=== PATIENT | female | born 1950 | race Caucasian/White ===

== ENCOUNTER 2016-06-25 13:51 | Inpatient (IN) | payer OTHER, MEDICARE ==
[~2016-06-25] VITALS: Ht 152.4 cm; Wt 107.1 kg
[2016-06-28] MEDS ORDERED: GABA300C5 PO (10:31)
[2016-06-28] MEDS ORDERED: DULO1CAP2 PO (10:32)
[2016-06-28] MEDS ORDERED: METO25TA3 PO (10:33)
[2016-06-28] MEDS ORDERED: SPIR25TA PO (10:33)
[2016-06-28] MEDS ORDERED: AZEL137S EACH NARE (10:33)
[2016-06-28] MEDS ORDERED: FURO20TA PO (10:34)
[2016-06-28] MEDS ORDERED: LEVO50TA4 PO (10:34)
[2016-06-28] MEDS ORDERED: CETI10 PO (10:34)
[2016-06-28] MEDS ORDERED: LYRI75CA PO (10:35)
[2016-06-28] MEDS ORDERED: LISI40TA PO (10:35)
[2016-06-28] MEDS ORDERED: ATOR40TA16 PO (10:36)
[2016-06-28] MEDS ORDERED: NORT10CA PO (10:36)
[2016-06-28] MEDS ORDERED: OMEP20TA PO (10:37)
[2016-06-28] MEDS ORDERED: CENTTAB PO (10:37)
[2016-06-28] MEDS ORDERED: VITA100064 PO (10:38)
[2016-06-28] MEDS ORDERED: OMEGCAP PO (10:38)
--- NOTE | 2016-07-01 17:36 | MH ---
cc: Allison SARABIA M.D. DATE OF ADMISSION: 07/05/2016 ADMITTING DIAGNOSIS: Osteoarthritic degeneration left knee now being admitted for left total knee arthroplasty. HISTORY OF PRESENT ILLNESS: This pleasant 66-year-old morbidly obese female is being admitted today for a left total knee arthroplasty due to severe painful osteoarthritic degeneration left knee. OTHER PAST HISTORY: 1. She has a history of arthritis 2. Asthma 3. Fibromyalgia 4. Hypertension 5. Low back pain 6. Neck pain 7. Thyroid issues CURRENT MEDICATIONS 1. Gabapentin 2. Duloxetine. 3. Spironolactone. 4. Metoprolol 5. 6. Lasix 7. Cetirizine. 8. Levothyroxine. 9. Lisinopril. 10. Lyrica 11. nortriptyline 12. Atorvastatin 13. Omeprazole 14. Centrum Silver 15. fish oil. 16. Vitamin D. PAST SURGERIES 1. Hysterectomy 2. Appendectomy 3. Left elbow surgery 4. Wrist surgery 5. Right rotator cuff surgery. REVIEW OF SYSTEMS Noncontributory. FAMILY HISTORY Noncontributory. SOCIAL HISTORY: She does not smoke. She drinks socially. ALLERGIES PENICILLIN. PHYSICAL EXAMINATION IN GENERAL: We find a 66-year-old morbidly obese female well-developed, well-nourished oriented x3 complaining of pain in her left knee. VITAL SIGNS: Blood pressure 118/72, pulse 66 and regular, respirations 16, temperature 97.6, pulse oximetry 96% on room air. HEAD, EYES, EARS, NOSE, AND THROAT: Eyes Pupils equal, round, reactive to light and accommodation, extraocular muscles intact. Ears, nose, mouth clear. NECK: Supple LUNGS: Clear HEART: Regular rate. ABDOMEN: Soft. Bowel sounds, nontender. EXTREMITIES: The extremities reveal her left knee to be tender with crepitance on range of motion. NEUROVASCULAR: She is neurovascularly intact to her toes. IMPRESSION Severe painful osteoarthritic degeneration left knee. PLAN Admission for left total knee arthroplasty today. The patient given prescription postoperative pain anticoagulation control in the office plans on going home after stay in the hospital with home health care. She understands to use Hibiclens scrub and Bactroban preoperatively. J. MD CATHLEEN Luz/michael /4:57 PM /5:17 PM
[2016-07-05] MEDS ORDERED: BUPIVACAINE HCL PF 0.5% 30 ML VIAL NERV BLOCK ONE (10:39)
[2016-07-05] MEDS ORDERED: LACTATED RINGER'S 1000 ML IV PRN (10:45)
[2016-07-05] MEDS ORDERED: POVIDONE IODINE 5% (ANTISEPSIS KIT) 4 APPLICATIONS EACH NARE PRN (10:45)
[2016-07-05] MEDS ORDERED: INSULIN HUMAN REGULAR 1,000 UNITS/10 ML VIAL SQ PRN (10:45)
[2016-07-05] MEDS ORDERED: CHLORHEXIDINE GLUCONATE 4% SOLN 120 ML BTL TOPICAL SCH (10:45)
[2016-07-05] MEDS ORDERED: CLINDAMYCIN 900 MG/NS 100 ML IV SCH ×2 (10:45)
[2016-07-05] MEDS ORDERED: SODIUM CHLORID 0.9% 500 ML IV PRN (10:45)
[2016-07-05] MEDS ORDERED: VANCOMYCIN 1000 MG/NS 250 ML (for <70 kg) IV SCH ×2 (10:45)
[2016-07-05] MEDS ORDERED: METOPROLOL TARTRATE 25 MG TAB PO PRN (10:45)
[2016-07-05] MEDS ORDERED: CHLORHEXIDINE GLUCONATE 2 % 1 PACK (2 CLOTHS) TOPICAL PRN (10:45)
[2016-07-05 10:47] VITALS: BP 119/78; PULSE 67; RESP 6; TEMP 98.3; O2SAT 96
[2016-07-05] MEDS ORDERED: CLINDAMYCIN PHOS 900 MG/6 ML VIAL ONE (11:21)
[2016-07-05] MEDS ORDERED: GENTAMICIN SULFATE 80 MG/2 ML VIAL ONE (11:22)
[2016-07-05] MEDS ORDERED: fentaNYL CITRATE 250 MCG/5 ML AMP ONE (11:33)
[2016-07-05] MEDS ORDERED: ACETAMINOPHEN/HYDROcodone 325 MG/7.5 MG TAB PO PRN (12:00)
[2016-07-05] MEDS ORDERED: ONDANSETRON HCL 4 MG/2 ML VIAL IV PUSH ONE (12:00)
[2016-07-05] MEDS ORDERED: SODIUM CHLORIDE 0.9% IV SCH ×2 (12:00→15:00)
[2016-07-05] MEDS ORDERED: TRANEXAMIC ACID INJ 0 MG in SODIUM CHLORIDE 0.9% INJ 100 ML IV SCH (12:00)
[2016-07-05] MEDS ORDERED: PROPOFOL 200 MG/20 ML AMP IV ONE (12:00)
[2016-07-05] MEDS ORDERED: Post-op Orders (for Pharmacy) MISC XX ONE (12:00)
[2016-07-05] MEDS ORDERED: PHENYLEPH/NS 1000 MCG/10 ML SYR IV ONE (12:00)
[2016-07-05] MEDS ORDERED: ONDANSETRON HCL 4 MG/2 ML VIAL IVP PRN (12:00)
[2016-07-05] MEDS ORDERED: diphenhydrAMINE HCL 50 MG/ML VIAL IV PRN (12:00)
[2016-07-05] MEDS ORDERED: ePHEDrine/NS 25 MG/5 ML SYR IV ONE (12:00)
[2016-07-05] MEDS ORDERED: MORPHINE SULFATE 30 MG/30 ML PCA IV SCH (12:00)
[2016-07-05] MEDS ORDERED: NALOXONE HCL 0.4 MG/ML AMP IV PRN (12:00)
[2016-07-05] MEDS ORDERED: TRANEXAMIC ACID IV SCH ×2 (12:00→15:00)
[2016-07-05] MEDS ORDERED: BUPIVACAINE LIPOSO PF 1.3% INJ 20 ML, BUPIVACAINE PF 0.25% INJ 20 ML in SODIUM CHLORIDE... P-ARTICULR SCH (12:00)
[2016-07-05] MEDS ORDERED: SODIUM CHLORIDE 0.9% FLUSH 5 ML FLUSH IVF PRN (12:00)
[2016-07-05] MEDS ORDERED: NEOSTIGMINE METHYLSULFATE 10 MG/10 ML VIAL IV PUSH ONE (12:00)
[2016-07-05] MEDS ORDERED: LACTATED RINGER'S 1000 ML INJ 1,000 ML IV ONE (12:00)
--- NOTE | 2016-07-05 12:06 | HHI.FF ---
Face to Face Verification Diagnosis: (1) Status post total left knee replacement Physical Therapy Gait training Knee: Total knee, Protocol: Left, Full weight bearing Canvas Knee Splint: When in bed & 2 pillows btw thighs Nursing RN: 3 days/week x 2 weeks Nursing: Leia teaching, Dressing changes Dressing Changes: Daily dressing change, 4x4s, Gauze, Paper tape I have seen patient Katie Roberts on 07/05/16. My clinical findings support the need for the requested home health care services because: Limited ability to care for self High risk of falls I certify that my clinical findings support that this patient is homebound because: Unsteady gait/balance Allison Osuna MD July 05, 2016 12:06
[2016-07-05] MEDS ORDERED: MISC-163 (12:08)
[2016-07-05] MEDS ORDERED: CPMMACHINE (12:09)
[2016-07-05] MEDS: PCA - TOTAL MG MORPHINE DELIVERED PER SHIFT SCH ×2 (14:00→22:00)
[2016-07-05] MEDS ORDERED: DO NOT ADM ANY ANTICOAGULANT DRUGS PRN (15:09)
[2016-07-05] MEDS: LACTATED RINGER'S 1000 ML INJ 1,000 ML IV SCH ×2 (15:22→20:10)
--- NOTE | 2016-07-05 15:35 | RADRPT ---
EXAM DATE/TIME: 07/05/2016 15:22 [facility] COMPARISON: No previous studies available for comparison. INDICATIONS : Post op left knee surgery. MEDICAL HISTORY : None. SURGICAL HISTORY : None. ENCOUNTER: Initial ACUITY: 1 day PAIN SCORE: Non-responsive. LOCATION: Left knee FINDINGS: AP and lateral views left knee were obtained. The patient is status post knee arthroplasty with tibia l and femoral components which are intact. There is apparent mild widening of the medial joint compar ed to the lateral joint. There is overlying anterior soft tissue swelling. There is mild artifact. CONCLUSION: Status post arthroplasty. There is apparent mild widening of the medial joint compar ed to the lateral joint. The study is mildly rotated. Zac Perez MD on July 05, 2016 at 15:32 Board Certified Radiologist. This report was verified electronically.
[2016-07-05] MEDS ORDERED: *hydrOXYzine 25 MG VIAL PERIprocedural Use ONLY IM ONE (15:59)
--- NOTE | 2016-07-05 16:00 | PD.CONS ---
HPI Service [facility] Hospitalists Consult Requested By Dr. Osuna Reason for Consult Medical management. Primary Care Physician Franklin Rodriguez MD Diagnoses: (1) Osteoarthritis of left knee (2) Hypertension (3) Thyroid disease (4) Fibromyalgia (5) Morbid obesity (6) Asthma History of Present Illness Ms. Roberts is a 66-year-old female with a known history of hypertension, hyperlipidemia, hypothyroidism, fibromyalgia and GERD who presented to the hospital for elective left total knee arthroplasty by Dr. Osuna. Hospitalist team has been consulted for medical management. Patient seen and examined in PACU. Patient still lethargic postop, awakens to voice, alert and oriented but a relatively poor historian at this time. Most of the medical history obtained through medical records. Patient complaints of pain to left knee with movement and palpation. Denies any recent fever, chills, cough, shortness of breath, nausea or vomiting. Denies any numbness or tingling to left lower extremity. Continued splint with patti wrap and post op dressing, clean, dry, intact. Review of Systems ROS Limitations: Other (post op anestehia residual) Except as stated in HPI: all other systems reviewed are Neg Past Family Social History Allergies: Coded Allergies: Penicillin (Verified Allergy, Severe, Swelling, 06/28/16) Past Medical History Fibromyalgia Arthritis Hypertension Hypothyroidism Hyperlipidemia GERD Tobacco use history Past Surgical History Hysterectomy Appendectomy Left elbow fracture Wrist surgery Right rotator cuff surgery Reported Medications Active Reported Vitamin D (Cholecalciferol) 1,000 Unit Tab 1,000 Units PO DAILY [place]-3 Fish Oil/Vitamin (Fish Oil-Cholecalciferol) 1,000-1,000 Mg Cap 1 Cap PO DAILY Centrum Silver (Multiple Vitamins W/ Minerals) 1 Tab 1 Tab PO DAILY Omeprazole 20 Mg Tab 20 Mg PO PRN Atorvastatin (Atorvastatin Calcium) 40 Mg Tab 40 Mg PO HS Nortriptyline (Nortriptyline HCl) 10 Mg Cap 10 Mg PO HS Lyrica (Pregabalin) 75 Mg Cap 75 Mg PO DAILY Lisinopril 40 Mg Tab 40 Mg PO DAILY Levothyroxine (Levothyroxine Sodium) 50 Mcg Tab 50 Mcg PO DAILY Cetirizine (Cetirizine HCl) 10 Mg Tab 10 Mg PO DAILY Furosemide 20 Mg Tab 20 Mg PO DAILY Dymista Nasal [place] (Azelastine-Fluticasone Nasal [place]) 137-50 Mcg [place] 1 [place] EACH NARE BID To each nostril. Metoprolol Tartrate 25 Mg Tab 25 Mg PO BID Spironolactone 25 Mg Tab 25 Mg PO BIDPC Duloxetine DR (Duloxetine HCl) 30 Mg Capdr 30 Mg PO BID Gabapentin 300 Mg Cap 300 Mg PO BID DECREASING DOSE EVERY TWO WEEKS. Active Ordered Medications Current Medications Medications (Trade) Dose Ordered Sig/Reji Route Start Time Stop Time Status Last Admin Lactated Ringer's 1,000 ml @ 30 mls/hr Q24H PRN IV 07/05/16 10:45 07/08/16 10:44 07/05/16 10:45 (NS 500 ml Inj) 500 ml @ 30 mls/hr [id number] PRN IV 07/05/16 10:45 07/08/16 10:44 Chlorhexidine Gluconate 1 applic 1 applic ONCE TOPICAL 07/05/16 10:45 07/08/16 10:44 Tranexamic Acid 1057 mg/Sodium Chloride 110.57 ml @ 200 mls/ hr ONCE IV 07/05/16 12:00 07/05/16 18:00 07/05/16 11:55 Tranexamic Acid 1057 mg/Sodium Chloride 110.57 ml @ 200 mls/ hr ONCE IV 07/05/16 15:00 07/05/16 21:00 07/05/16 14:55 (Exparel Pf 1.3% Inj/Marcaine Pf 0.25% Inj/NS Inj) 140 ml @ 120 mls/hr ONCE P-ARTICULR 07/05/16 12:00 07/05/16 18:00 07/05/16 12:27 (Lipitor) 40 mg HS PO 07/05/16 21:00 (ZyrTEC) 10 mg DAILY PO 07/06/16 09:00 (Vitamin D3) 1,000 units DAILY PO 07/06/16 09:00 (Cymbalta Dr) 30 mg BID PO 07/05/16 21:00 (Lasix) 20 mg DAILY PO 07/06/16 09:00 (Neurontin) 300 mg BID PO 07/05/16 21:00 (Synthroid) 50 mcg DAILY@06 PO 07/06/16 06:00 (Lopressor) 25 mg BID PO 07/05/16 21:00 (Pamelor) 10 mg HS PO 07/05/16 21:00 (Lyrica) 75 mg DAILY PO 07/06/16 09:00 (Aldactone) 25 mg BIDPC PO 07/05/16 18:00 Lisinopril 40 mg 40 mg DAILY PO 07/06/16 09:00 (Lr 1000 ml Inj) 1,000 ml @ 80 mls/hr [id number] IV 07/05/16 12:15 07/05/16 15:22 (NS Flush) 2 ml UNSCH PRN IVF 07/05/16 12:00 IV Flush 2 ml 2 ml BID IVF 07/05/16 21:00 (Cleocin Inj/NS Inj) 106 ml @ 212 mls/hr Q8H IV 07/05/16 20:00 07/06/16 12:29 (Lovenox Inj) 30 mg Q12H SQ 07/05/16 12:00 UNV (Blue Eye 7.5-325 Mg) 1 tab Q4H PRN PO 07/05/16 12:00 (Blue Eye 7.5-325 Mg) 2 tab Q4H PRN PO 07/05/16 12:00 (Tylenol) 650 mg Q6H PRN PO 07/05/16 12:00 (Theragran M Tab) 1 tab BID PO 07/06/16 21:00 09/04/16 20:59 (Zofran Inj) 4 mg Q6H PRN IVP 07/05/16 12:00 (Colace) 100 mg BID PO 07/06/16 21:00 (Restoril) 15 mg HS PRN PO 07/05/16 12:00 (Narcan Inj) 0.4 mg UNSCH PRN IV 07/05/16 12:00 (Benadryl Inj) 25 mg Q6H PRN IV 07/05/16 12:00 (Morphine 1 Mg/ ml PROFESSIONAL SERVICES MANAGER) 30 mg UNSCH IV 07/05/16 12:00 07/05/16 15:21 PROFESSIONAL SERVICES MANAGER Dosage Infused (Pha) 1 Q8HR .XX 07/05/16 14:00 Family History Paternal medical history significant for hypertension and thyroid disease. Maternal medical history also significant for hypertension. Social History Patient denies any current tobacco use. Denies any alcohol use. Denies any illicit drug use. Physical Exam Vital Signs Vital Signs Date Time Temp Pulse Resp B/P Pulse Ox O2 Delivery O2 Flow Rate FiO2 07/05/16 15:21 14 07/05/16 15:11 97.5 59 12 121/75 96 Blow By 3 Nasal Cannula 07/05/16 10:47 98.3 67 6 119/78 96 Physical Exam GENERAL: A well-nourished, well-developed female seen in PACU. Patient lethargic post op. Awakens to voice and speech clear. SKIN: No rashes, ecchymoses or lesions. Warm and dry. HEENT: Atraumatic. Normocephalic. No temporal or scalp tenderness. Pupils equal round and reactive. Extraocular motions intact. No scleral icterus. No injection or drainage. Nose without bleeding. Throat without erythema. Airway patent. Neck supple. CARDIOVASCULAR: Regular rate and rhythm. No murmur appreciated. RESPIRATORY: Clear to auscultation. Breath sounds equal bilaterally. GASTROINTESTINAL: Abdomen soft, non-tender, nondistended. No guarding. MUSCULOSKELETAL: Extremities without clubbing, cyanosis, or edema. No joint tenderness, effusion, or edema noted. Left knee splint in place, wrapped in patti and dressing c/d/i. NEUROLOGICAL: Lethargic, awakens to voice. Cranial nerves II through XII intact. Motor and sensory grossly within normal limits. Normal speech. Laboratory Laboratory Tests Test 07/05/16 10:45 Blood Type O POSITIVE Antibody Screen NEGATIVE Blood Bank Comment Imaging Last Impressions Knee X-Ray 07/05/16 1159 Signed Impressions: Service Date/Time: Tuesday, July 05, 2016 15:22 - CONCLUSION: Status post arthroplasty. There is apparent mild widening of the medial joint compared to the lateral joint. The study is mildly rotated. Zac Perez MD Assessment and Plan Assessment and Plan Ms. Roberts is a 66-year-old female with a known history of hypertension, hyperlipidemia, hypothyroidism, fibromyalgia and GERD who presented to the hospital for elective left total knee arthroplasty performed by Dr. Thao cotter on 07/05. Status post left total knee arthroplasty - Post op day 0. - Control pain. Morphine IV PROFESSIONAL SERVICES MANAGER. Blue Eye PO PRN per pain scale. Control nausea , Zofran PRN. Monitor for constipation, Colace 100 mg PO BID scheduled. - Clindamycin 900 mg IV Q8hr x 3 bags. - Continue IVF Lactated ringer's at 80 ml/hr. - Dressing changes per surgery. Hypertension, controlled. - Will continue home Lasix 20 mg PO daily. - Continue Lopressor 25 mg PO BID, Lisinopril 40 mg PO daily and Spirolactone 25 mg PO BIDPC. - Monitor. Other medical conditions include hyperthyroidism, fibromyalgia, dyslipidemia, depression, peripheral neuropathy and GERD and are currently stable at this time. Will resume home medications as indicated. DVT prophylaxis: Lovenox 30 mg sq Q12h. SCDs. Written by Shena Sullivan, acting as scribe for Dr. Hoang on 07/05/16 at 15:58. This note was transcribed by scribe Shena BLOCK. I, Dr. Kerri Hoang personally performed the history, physical exam, and medical decision making; and confirmed the accuracy of the information in the transcribed note. Authenticated by Dr. Kerri Hoang on 07/05/16 at 15:58. Shena Sullivan July 05, 2016 16:00 Kerri Hoang MD July 05, 2016 17:33
[2016-07-05] MEDS ORDERED: *HYDROmorphone PF 1 MG VIAL PERIprocedural Use ONLY ONE (16:16)
--- NOTE | 2016-07-05 17:49 | RADRPT ---
EXAM DATE/TIME: 07/05/2016 17:22 [facility] COMPARISON: KNEE LEFT LTD (1 OR 2VWS), July 05, 2016, 15:22. INDICATIONS : Post left knee arthroplasty MEDICAL HISTORY : None. SURGICAL HISTORY : None. ENCOUNTER: Initial ACUITY: 1 day PAIN SCORE: Non-responsive. LOCATION: Left Knee FINDINGS: AP and lateral views of the left knee were obtained and demonstrate the patient is status post arthro plasty. The femoral and tibial components are intact. There postoperative changes involving the quinonez la. There is overlying soft tissue swelling an artifact. The medial joint space appears wider than th e lateral joint space. The study is mildly rotated. CONCLUSION: 1. Status post arthroplasty. 2. The medial joint compartment appears wider than the lateral compartment however this may be artifa ctual since the study is mildly rotated. Zac Perez MD on July 05, 2016 at 17:46 Board Certified Radiologist. This report was verified electronically.
--- NOTE | 2016-07-05 18:01 | HHI.PR ---
Immediate Post Op Note Procedure Date: July 05, 2016 Pre Op Diagnosis: (1) Osteoarthritis of left knee Post Op Diagnosis: Osteoarthritis of left knee Surgeon: Allison Osuna MD Electric Range Servicer(s): Patricia Gaxiola. CLIFF CORONADO Procedure: Left total knee Arthroplasty Estimated blood loss: 200 Anesthesia: General Drains: None IVF Tourniquet time (min at mmHg) none Patient to: PACU Patient Condition: Good Implant/Devices: SEE IMPLANT LOG (if applicable) Date/Time of Procedure: SEE SURGICAL CARE RECORD Dorothy Radford July 05, 2016 18:01
[2016-07-05 18:30] VITALS: BP 95/54; PULSE 60; RESP 12; TEMP 95.8; O2SAT 97
[2016-07-05 19:35] VITALS: BP 96/53; PULSE 63; RESP 16; TEMP 96.8; O2SAT 99
[2016-07-05 19:49] VITALS: O2SAT 97
[2016-07-05] MEDS: ATORVASTATIN 40 MG TAB PO SCH (20:04)
[2016-07-05] MEDS: DULoxetine HCl DR 30 MG CAP PO SCH (20:04)
[2016-07-05] MEDS: GABAPENTIN 300 MG CAP PO SCH (20:04)
[2016-07-05] MEDS: SPIRONOLACTONE 25 MG TAB PO SCH (20:04)
[2016-07-05] MEDS: METOPROLOL TARTRATE 25 MG TAB PO SCH (20:04)
[2016-07-05] MEDS: SODIUM CHLORIDE 0.9% FLUSH 5 ML FLUSH IVF SCH (20:05)
[2016-07-05] MEDS: NORTRIPTYLINE HCL 10 MG CAP PO SCH (20:35)
[2016-07-05] MEDS: CLINDAMYCIN INJ 900 MG in SODIUM CHLORIDE 0.9% INJ 100 ML IV SCH (20:35)
[2016-07-05] MEDS: ACETAMINOPHEN/HYDROcodone 325 MG/7.5 MG TAB PO PRN (23:36)
[2016-07-06] VITALS (9 sets, daily range): BP systolic 96–116; BP diastolic 51–80; PULSE 72–87; RESP 16–18; TEMP 96.9–99.4; O2SAT 92–99
[2016-07-06] MEDS: CLINDAMYCIN INJ 900 MG in SODIUM CHLORIDE 0.9% INJ 100 ML IV SCH ×2 (05:03→12:25)
[2016-07-06] MEDS: LEVOTHYROXINE SODIUM 50 MCG TAB PO SCH (05:04)
[2016-07-06] MEDS: PCA - TOTAL MG MORPHINE DELIVERED PER SHIFT SCH (05:15)
[2016-07-06 07:55] LABS: HEMATOCRIT 33.2 % (35.0-46.0); REVIEW FLAG FINAL
[2016-07-06] MEDS ORDERED: NON-FORMULARY DRUG (Fish Oil-Cholecalciferol (Omega-3 Fish Oil/Vitamin) 1 CAP) PO SCH (09:00)
[2016-07-06] MEDS: METOPROLOL TARTRATE 25 MG TAB PO SCH ×2 (09:00→20:27)
[2016-07-06] MEDS ORDERED: MULTIPLE VITAMINS PO SCH (09:00)
[2016-07-06] MEDS: FUROSEMIDE 20 MG TAB PO SCH (09:00)
[2016-07-06] MEDS ORDERED: MINERALS PO SCH (09:00)
[2016-07-06] MEDS: LISINOPRIL 20 MG TAB PO SCH (09:00)
[2016-07-06] MEDS: SPIRONOLACTONE 25 MG TAB PO SCH ×2 (09:00→17:45)
[2016-07-06] MEDS: SODIUM CHLORIDE 0.9% FLUSH 5 ML FLUSH IVF SCH ×2 (09:00→20:28)
--- NOTE | 2016-07-06 09:05 | HHI.PR ---
Subjective Remarks The patient complains of pain, currently using DINING CAR STEWARD. The patient is somehow lethargic due to pain medications. She is saturating well on 3 L nasal cannula at this time. She is not requiring oxygen at home and she doesn't have a history of COPD. She is not wheezing. No nausea or vomiting, no diarrhea. Has constipation. No fever or chills. No diarrhea. Did not eat much last night. getting breakfast, family at bedside. Objective Vitals Vital Signs Date Time Temp Pulse Resp B/P Pulse Ox O2 Delivery O2 Flow Rate FiO2 07/06/16 05:15 16 07/06/16 04:00 96.9 79 16 116/62 99 07/06/16 04:00 Nasal Cannula 3.00 07/06/16 00:00 Nasal Cannula 3.00 07/06/16 00:00 97.5 72 16 106/55 98 07/05/16 22:00 14 07/05/16 20:00 Nasal Cannula 3.00 07/05/16 19:49 97 Nasal Cannula 3.00 07/05/16 19:35 96.8 63 16 96/53 99 07/05/16 18:30 95.8 60 12 95/54 97 07/05/16 17:00 97.4 62 14 104/59 95 Nasal Cannula 2 07/05/16 16:45 63 14 93/58 94 Nasal Cannula 2 07/05/16 16:30 67 12 101/58 96 Nasal Cannula 2 07/05/16 16:15 71 12 122/65 100 Nasal Cannula 3 07/05/16 16:00 74 12 128/57 99 Nasal Cannula 3 07/05/16 15:45 62 12 90/53 100 Nasal Cannula 3 07/05/16 15:30 58 12 91/52 100 Nasal Cannula 3 07/05/16 15:21 14 07/05/16 15:15 60 12 93/50 95 Blow By 3 Nasal Cannula 07/05/16 15:11 97.5 59 12 121/75 96 Blow By 3 Nasal Cannula 07/05/16 10:47 98.3 67 6 119/78 96 I/O 07/05/16 07/05/16 07/05/16 07/06/16 07/06/16 07/06/16 06:59 14:59 22:59 06:59 14:59 22:59 Intake Total 2965 ml 908 ml Output Total 150 ml Balance 2815 ml 908 ml Intake Oral 240 ml 240 ml IV Total 1125 ml 668 ml Other 1600 ml Output Estimated Blood Loss 150 ml # Voids 2 1 Result Diagram: 07/06/16 0723 Imaging Last Impressions Knee X-Ray 07/05/16 1159 Signed Impressions: Service Date/Time: Tuesday, July 05, 2016 15:22 - CONCLUSION: Status post arthroplasty. There is apparent mild widening of the medial joint compared to the lateral joint. The study is mildly rotated. Zac Perez MD Objective Remarks GENERAL: A well-nourished, well-developed female. Patient in the chair, sleepy, patient on DINING CAR STEWARD. SKIN: No rashes, ecchymoses or lesions. Warm and dry. HEENT: Atraumatic. Normocephalic. No temporal or scalp tenderness. Pupils equal round and reactive. Extraocular motions intact. No scleral icterus. No injection or drainage. Nose without bleeding. Throat without erythema. Airway patent. Neck supple. CARDIOVASCULAR: Regular rate and rhythm. No murmur appreciated. RESPIRATORY: Clear to auscultation. Breath sounds equal bilaterally. GASTROINTESTINAL: Abdomen soft, non-tender, nondistended. No guarding. MUSCULOSKELETAL: Extremities without clubbing, cyanosis, or edema. No joint tenderness, effusion, or edema noted. Left knee splint in place, wrapped in patti and dressing c/d/i. NEUROLOGICAL: Awake and alert, appears sleepy. Cranial nerves II through XII intact. Motor and sensory grossly within normal limits. Normal speech. PSYCH: labile mood. Procedures left total knee arthroplasty performed by Dr. Thao cotter on 07/05. A/P Problem List: (1) Osteoarthritis of left knee ICD Code: M17.12 Status: Acute (2) Hypertension ICD Code: I10 Status: Acute (3) Thyroid disease ICD Code: E07.9 Status: Acute (4) Fibromyalgia ICD Code: M79.7 Status: Acute (5) Morbid obesity ICD Code: E66.01 Status: Acute (6) Asthma ICD Code: J45.909 Status: Acute Assessment and Plan Ms. Roberts is a 66-year-old female with a known history of hypertension, hyperlipidemia, hypothyroidism, fibromyalgia and GERD who presented to the hospital for elective left total knee arthroplasty performed by Dr. Thao cotter on 07/05. OA of Right Knee- Status post left total knee arthroplasty on 07/05 - Control pain. Morphine IV DINING CAR STEWARD. Lynd PO PRN per pain scale. Control nausea , Zofran PRN. Monitor for constipation, Colace 100 mg PO BID scheduled. Wean off DINING CAR STEWARD. - Clindamycin 900 mg IV Q8hr x 3 bags. - Continue IVF Lactated ringer's at 80 ml/hr. - Dressing changes per surgery. SOB, satting well on 3L at this time. however patient doesn't require O2 at home. Patient with acute respiratopry failure requiring 3L NC at this time. Will do CXR. Encouraged IS. Wean off DINING CAR STEWARD pump, transition to PO pain meds. O2 supplement as need keep O2 sat > 92 %. Duonebs as need if wheezing. Wll also check BNP Hypertension, controlled. - Will continue home Lasix 20 mg PO daily. - Continue Lopressor 25 mg PO BID, Lisinopril 40 mg PO daily and Spirolactone 25 mg PO BIDPC. - Monitor. Other medical conditions include hyperthyroidism, fibromyalgia, dyslipidemia, depression, peripheral neuropathy and GERD and are currently stable at this time. Will resume home medications as indicated. DVT prophylaxis: Lovenox 30 mg sq Q12h. SCDs/TEDs. Kerri Hoang MD July 06, 2016 09:05
[2016-07-06] MEDS: GABAPENTIN 300 MG CAP PO SCH ×2 (09:13→20:26)
[2016-07-06] MEDS: CHOLECALCIFEROL (VIT D3) 1000 UNIT TAB PO SCH (09:13)
[2016-07-06] MEDS: DULoxetine HCl DR 30 MG CAP PO SCH ×2 (09:14→20:27)
[2016-07-06] MEDS: CETIRIZINE HCL 10 MG TAB PO SCH (09:14)
[2016-07-06] MEDS: PREGABALIN 75 MG CAP PO SCH (09:14)
--- NOTE | 2016-07-06 11:14 | PD.ORT.PN ---
Subjective Subjective Remarks pt complaining of pain and feels washed out. Objective Vitals Vital Signs Date Time Temp Pulse Resp B/P Pulse Ox O2 Delivery O2 Flow Rate FiO2 07/06/16 09:09 99 Nasal Cannula 3.00 07/06/16 08:00 97.3 83 18 108/51 96 07/06/16 05:15 16 07/06/16 04:00 96.9 79 16 116/62 99 07/06/16 04:00 Nasal Cannula 3.00 07/06/16 00:00 Nasal Cannula 3.00 07/06/16 00:00 97.5 72 16 106/55 98 07/05/16 22:00 14 07/05/16 20:00 Nasal Cannula 3.00 07/05/16 19:49 97 Nasal Cannula 3.00 07/05/16 19:35 96.8 63 16 96/53 99 07/05/16 18:30 95.8 60 12 95/54 97 07/05/16 17:00 97.4 62 14 104/59 95 Nasal Cannula 2 07/05/16 16:45 63 14 93/58 94 Nasal Cannula 2 07/05/16 16:30 67 12 101/58 96 Nasal Cannula 2 07/05/16 16:15 71 12 122/65 100 Nasal Cannula 3 07/05/16 16:00 74 12 128/57 99 Nasal Cannula 3 07/05/16 15:45 62 12 90/53 100 Nasal Cannula 3 07/05/16 15:30 58 12 91/52 100 Nasal Cannula 3 07/05/16 15:21 14 07/05/16 15:15 60 12 93/50 95 Blow By 3 Nasal Cannula 07/05/16 15:11 97.5 59 12 121/75 96 Blow By 3 Nasal Cannula I/O 07/05/16 07/05/16 07/05/16 07/06/16 07/06/16 07/06/16 06:59 14:59 22:59 06:59 14:59 22:59 Intake Total 2965 ml 908 ml Output Total 150 ml Balance 2815 ml 908 ml Intake Oral 240 ml 240 ml IV Total 1125 ml 668 ml Other 1600 ml Output Estimated Blood Loss 150 ml # Voids 2 1 Result Diagram: 07/06/16 0723 Imaging Last 24 hours Impressions Knee X-Ray 07/05/16 1159 Signed Impressions: Service Date/Time: Tuesday, July 05, 2016 15:22 - CONCLUSION: Status post arthroplasty. There is apparent mild widening of the medial joint compared to the lateral joint. The study is mildly rotated. Zac Perez MD Objective Remarks Sitting up in chair with legs elevated. Dressing dry and intact. No calf tenderness. 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 Plan for placement SNF or rehab center. Allison Osuna MD July 06, 2016 11:09
--- NOTE | 2016-07-06 11:32 | MP ---
cc: Allison OSUNA M.D. DATE OF SURGERY 07/05/2016 PREOPERATIVE DIAGNOSIS Osteoarthritic degeneration left knee. POSTOPERATIVE DIAGNOSIS Osteoarthritic degeneration left knee. SURGERY PERFORMED Left total knee arthroplasty with Consensus Total Knee System with protocol. SURGEON Dr. Osuna LICENSED CUST[employer]S [employer]ER CLIFF Bell ANESTHESIA General intubation and Exparel. PROCEDURE FOLLOWS After successful induction of anesthesia, the patient is placed on the operating room table in the supine position. The knee is prepped and draped in the usual manner. A tourniquet is inflated at the upper thigh and set to 300 mmHg pressure after exsanguination of the lower extremity. A longitudinal incision is made extending from 3 inches proximal to the superior pole of the patella, across the patella in longitudinal fashion, and down past the insertion of the tibial tubercle into the proximal tibia. The incision is carried down through subcutaneous tissue along the medial aspect of the patella and retinaculum, down through the capsule to expose the knee joint. The patella and patellar tendon are freed up enough to allow the patella to be inverted and retracted off the lateral side of the knee joint. The knee joint is left exposed. Small osteophytes are removed. All soft tissue is removed to allow proper position of the femoral and tibial cutting jig guide. The first femoral jig is then inserted along the distal end of the femur after first measuring to decide whether this is a small, medium, or large component. The notch is then drilled and the tibial cutting guide inserted into the femoral cutting guide, along with the ankle brace to allow for proper measurement of the tibial cutting surface that needed to be resected. Pins are inserted into the tibial cutting jig and femoral cutting jig to hold them in place. An oscillating saw is then used to resect the surface of the tibia. The surface of the tibia is then completely removed using sharp and blunt dissection. The anterior and posterior cuts of the femur are then made as well using an oscillating saw through the cutting guide. All guides are then removed and the varus/valgus angulation cutting guide applied to the femur for proper measurement of the proper amount of valgus. The anterior cutting guide for the femur is then inserted at the anterior femoral cuts made. Next, the first block trial is inserted into the femur to allow for proper condyle drill holes to be made which are then made followed by removal of the bone between the condyles using an oscillating saw as well as the bone removed at the most posterior surface of the condyle. After this, this guide is removed and the chamfer cuts made using the chamfer cutting guide from both anterior and posterior. Next, the femoral trial is then inserted, the tibial surface reflected anterior to expose the tibial surface and a tibial stem guide is inserted after first measuring for a standard, standard plus, large, or large plus surface to be used. After the stem is impacted the trial tibial surface is applied followed by the trial meniscal components. After full range of motion is found with the appropriate length meniscal components varying the patella is prepared by resecting the posterior aspect of the patella using an oscillating saw, inserting a trial. The trial is then removed and the cruciate cutting guide applied using the bur to cut the cruciate cuts. After cruciate cuts are made all trials are removed. The wound is irrigated copiously with antibiotic solution and Water Pik and the actual components inserted into place using Consensus Total Knee System. Patella was size 2 x 7.5, the femur was a 3, the tibia a 2 and a PCL insert needed to be used for the tibia, size 10. It should be noted that to expose this knee joint, the patient being morbidly obese, there was an extra 45 minutes between dissection and sewing up, approximating her and also a lateral retinacular release needed to be performed and a large osteophyte needed to be removed from the lateral aspect of the patella in order to expose the knee joint as well. This took an extra 30 minutes. Tourniquet was utilized, total tourniquet time being 70 minutes at 300 mmHg pressure. Meticulous hemostasis was achieved, the deep fascia approximated with running and interrupted #1 Vicryl suture, subcutaneous tissue approximated using interrupted 2-0 and 3-0 Monocryl suture, Steri-Strips, sterile dressing and knee immobilizer. No drain utilized. ESTIMATED BLOOD LOSS 150 cc. COUNTS Sponge and suture counts were correct. COMPONENTS: The components used were a Consensus Total Knee System. Patella was size 2 x 7.5, the femur was a 3, the tibia a 2 and a PCL insert needed to be used for the tibia, size 10. The ophthalmic surgical assistant, CLIFF Bell, was present during the entire procedure to help with patient positioning as well as the procedure itself. The medical necessity of a nurse practitioner economic research assistant was indicated in this case due to the surgical complexity of the case itself and during the surgical case a ophthalmic surgical assistant was working the back table while the surgical orderly/CAP COVERER was directly assisting me. The patient tolerated the procedure well and left the operating room in satisfactory condition. J. MD CATHLEEN Luz/SSB /2:30 PM /11:11 AM
[2016-07-06] MEDS: LACTATED RINGER'S 1000 ML INJ 1,000 ML IV SCH (13:15)
[2016-07-06] MEDS: ENOXAPARIN SODIUM 30 MG/0.3 ML SYRINGE SQ SCH (15:11)
--- NOTE | 2016-07-06 15:55 | RADRPT ---
EXAM DATE/TIME: 07/06/2016 15:28 [facility] COMPARISON: No previous studies available for comparison. INDICATIONS : Shortness of breath. MEDICAL HISTORY : Hypertension. Hypercholesterolemia. Congestive heart failure. Asthma. GERD. SURGICAL HISTORY : None. ENCOUNTER: Initial ACUITY: 1 day PAIN SCORE: 0/10 LOCATION: Bilateral chest FINDINGS: A single view of the chest demonstrates the lungs to be symmetrically aerated without evidence of mas s, infiltrate or effusion. The cardiomediastinal contours are unremarkable. Osseous structures are intact. There is prominence of the aortic knob is with calcification characteristic of atheroscleroti c vascular disease. CONCLUSION: 1. No acute cardiopulmonary disease. Morro Pandey MD on July 06, 2016 at 15:54 Board Certified Radiologist. This report was verified electronically.
[2016-07-06] MEDS: ATORVASTATIN 40 MG TAB PO SCH (20:26)
[2016-07-06] MEDS: NORTRIPTYLINE HCL 10 MG CAP PO SCH (20:26)
[2016-07-06] MEDS: MULTIVITAMINS/MINERALS THERAPEUTIC TAB PO SCH (20:26)
[2016-07-06] MEDS: DOCUSATE SODIUM 100 MG CAP PO SCH (20:27)
[2016-07-06] MEDS: ACETAMINOPHEN/HYDROcodone 325 MG/7.5 MG TAB PO PRN (20:27)
[2016-07-07] VITALS (7 sets, daily range): BP systolic 96–118; BP diastolic 50–64; PULSE 72–87; RESP 16–18; TEMP 97–99.6; O2SAT 94–98
[2016-07-07] MEDS: LACTATED RINGER'S 1000 ML INJ 1,000 ML IV SCH ×2 (01:37→14:15)
[2016-07-07] MEDS: ENOXAPARIN SODIUM 30 MG/0.3 ML SYRINGE SQ SCH ×2 (02:37→15:40)
[2016-07-07] MEDS: LEVOTHYROXINE SODIUM 50 MCG TAB PO SCH (05:02)
[2016-07-07] MEDS: ACETAMINOPHEN/HYDROcodone 325 MG/7.5 MG TAB PO PRN (05:03)
[2016-07-07 06:41] LABS: HEMATOCRIT 29.1 % (35.0-46.0); REVIEW FLAG FINAL
--- NOTE | 2016-07-07 08:41 | PD.ORT.PN ---
Subjective Post Op Day #: 3 Pain Scale: 0 Subjective Remarks Ax3, Feeling much better today Objective Vitals Vital Signs Date Time Temp Pulse Resp B/P Pulse Ox O2 Delivery O2 Flow Rate FiO2 07/07/16 04:00 99.6 79 17 113/59 95 07/07/16 00:00 97.8 78 16 107/52 97 07/06/16 21:16 96 21 07/06/16 20:00 98.8 87 17 107/60 96 07/06/16 16:00 99.0 82 18 116/80 92 07/06/16 13:27 102/58 07/06/16 12:00 99.4 81 18 96/51 94 07/06/16 09:09 99 Nasal Cannula 3.00 I/O 07/06/16 07/06/16 07/06/16 07/07/16 07/07/16 07/07/16 07:00 15:00 23:00 07:00 15:00 23:00 Intake Total 908 ml 1080 ml 480 ml Balance 908 ml 1080 ml 480 ml Intake Oral 240 ml 1080 ml 480 ml IV Total 668 ml # Voids 1 4 2 # Bowel Movements 0 Result Diagram: 07/07/16 0538 Imaging Last 24 hours Impressions Knee X-Ray 07/05/16 1159 Signed Impressions: Service Date/Time: Tuesday, July 05, 2016 15:22 - CONCLUSION: Status post arthroplasty. There is apparent mild widening of the medial joint compared to the lateral joint. The study is mildly rotated. Zac Perez MD Objective Remarks Dressing clean,dry and intact. No calf tenderness verbilized, palpated: COLINDRES Pedal and post tibial pules 2+ palp Lungs cts IS 500. productive cough BS x4 +Gas Voids Assessment & Plan Assessment and Plan Cont OOB, PO pain meds, watch temp and cont PT. Continue (rehab) plan for placement SNF or rehab center. [id number] signed Dorothy Radford July 07, 2016 8:41 am
[2016-07-07] MEDS: LISINOPRIL 20 MG TAB PO SCH (09:00)
[2016-07-07] MEDS: SODIUM CHLORIDE 0.9% FLUSH 5 ML FLUSH IVF SCH ×2 (09:00→20:54)
[2016-07-07] MEDS: METOPROLOL TARTRATE 25 MG TAB PO SCH ×2 (09:00→20:55)
[2016-07-07] MEDS: MULTIVITAMINS/MINERALS THERAPEUTIC TAB PO SCH ×2 (09:00→20:52)
--- NOTE | 2016-07-07 09:08 | HHI.PR ---
Subjective Remarks Satting well on room air now. She is in the chair. She is more awake and alert. Pain is controlled by medications. She denies any chest pain or shortness of breath. No cough. Trying to have a bowel movement. Complaints of constipation. No abdominal pain. No fever or chills. Objective Vitals Vital Signs Date Time Temp Pulse Resp B/P Pulse Ox O2 Delivery O2 Flow Rate FiO2 07/07/16 08:00 97.6 72 18 103/53 94 07/07/16 04:00 99.6 79 17 113/59 95 07/07/16 00:00 97.8 78 16 107/52 97 07/06/16 21:16 96 21 07/06/16 20:00 98.8 87 17 107/60 96 07/06/16 16:00 99.0 82 18 116/80 92 07/06/16 13:27 102/58 07/06/16 12:00 99.4 81 18 96/51 94 07/06/16 09:09 99 Nasal Cannula 3.00 I/O 07/06/16 07/06/16 07/06/16 07/07/16 07/07/16 07/07/16 07:00 15:00 23:00 07:00 15:00 23:00 Intake Total 908 ml 1080 ml 480 ml Balance 908 ml 1080 ml 480 ml Intake Oral 240 ml 1080 ml 480 ml IV Total 668 ml # Voids 1 4 2 # Bowel Movements 0 Result Diagram: 07/07/16 0538 Imaging Last Impressions Chest X-Ray 07/06/16 0000 Signed Impressions: Service Date/Time: Wednesday, July 06, 2016 15:28 - CONCLUSION: 1. No acute cardiopulmonary disease. Morro Pandey MD Knee X-Ray 07/05/16 1159 Signed Impressions: Service Date/Time: Tuesday, July 05, 2016 15:22 - CONCLUSION: Status post arthroplasty. There is apparent mild widening of the medial joint compared to the lateral joint. The study is mildly rotated. Zac Perez MD Objective Remarks GENERAL: A well-nourished, well-developed female. Patient in the chair, sleepy, patient on VASCULAR SURGERY PHYSICIAN. SKIN: No rashes, ecchymoses or lesions. Warm and dry. HEENT: Atraumatic. Normocephalic. No temporal or scalp tenderness. Pupils equal round and reactive. Extraocular motions intact. No scleral icterus. No injection or drainage. Nose without bleeding. Throat without erythema. Airway patent. Neck supple. CARDIOVASCULAR: Regular rate and rhythm. No murmur appreciated. RESPIRATORY: Clear to auscultation. Breath sounds equal bilaterally. GASTROINTESTINAL: Abdomen soft, non-tender, nondistended. No guarding. MUSCULOSKELETAL: Extremities without clubbing, cyanosis, or edema. No joint tenderness, effusion, or edema noted. Left knee splint in place, wrapped in patti and dressing c/d/i. NEUROLOGICAL: Awake and alert, appears sleepy. Cranial nerves II through XII intact. Motor and sensory grossly within normal limits. Normal speech. PSYCH: labile mood. Procedures left total knee arthroplasty performed by Dr. Thao cotter on 07/05. A/P Problem List: (1) Osteoarthritis of left knee ICD Code: M17.12 Status: Acute (2) Hypertension ICD Code: I10 Status: Acute (3) Thyroid disease ICD Code: E07.9 Status: Acute (4) Fibromyalgia ICD Code: M79.7 Status: Acute (5) Morbid obesity ICD Code: E66.01 Status: Acute (6) Asthma ICD Code: J45.909 Status: Acute Assessment and Plan Ms. Roberts is a 66-year-old female with a known history of hypertension, hyperlipidemia, hypothyroidism, fibromyalgia and GERD who presented to the hospital for elective left total knee arthroplasty performed by Dr. Thao cotter on 07/05. OA of Right Knee- Status post left total knee arthroplasty on 07/05 - Control pain. Morphine IV VASCULAR SURGERY PHYSICIAN. [place] PO PRN per pain scale. Control nausea , Zofran PRN. Monitor for constipation, Colace 100 mg PO BID scheduled. Wean off VASCULAR SURGERY PHYSICIAN. - Clindamycin 900 mg IV Q8hr x 3 bags. - Continue IVF Lactated ringer's at 80 ml/hr. - Dressing changes per surgery. SOB, requiring 3L O2 07/06. however patient doesn't require O2 at home. Patient with acute respiratory failure requiring 3L NC on 07/06. RESOLVED, satting well on room air now. CXR reviewed and normal. Encouraged IS. Weaned off VASCULAR SURGERY PHYSICIAN pump and transitioned to PO pain meds. O2 supplement as need keep O2 sat > 92 %. Duonebs as need if wheezing. Hypertension, controlled. - Will continue home Lasix 20 mg PO daily. - Continue Lopressor 25 mg PO BID, Lisinopril 40 mg PO daily and Spirolactone 25 mg PO BIDPC. - Monitor. Other medical conditions include hyperthyroidism, fibromyalgia, dyslipidemia, depression, peripheral neuropathy and GERD and are currently stable at this time. Will resume home medications as indicated. DVT prophylaxis: Lovenox 30 mg sq Q12h. SCDs/TEDs. Improved significantly, satting well on room air now. Pain is controlled by meds. Kerri Hoang MD July 07, 2016 09:08
[2016-07-07] MEDS: PREGABALIN 75 MG CAP PO SCH (09:48)
[2016-07-07] MEDS: DOCUSATE SODIUM 100 MG CAP PO SCH ×2 (09:48→20:52)
[2016-07-07] MEDS: CHOLECALCIFEROL (VIT D3) 1000 UNIT TAB PO SCH (09:48)
[2016-07-07] MEDS: DULoxetine HCl DR 30 MG CAP PO SCH ×2 (09:48→20:52)
[2016-07-07] MEDS: SENNOSIDES 8.6 MG TAB PO SCH ×2 (09:49→20:53)
[2016-07-07] MEDS: FUROSEMIDE 20 MG TAB PO SCH (09:49)
[2016-07-07] MEDS: CETIRIZINE HCL 10 MG TAB PO SCH (09:49)
[2016-07-07] MEDS: GABAPENTIN 300 MG CAP PO SCH ×2 (09:51→20:54)
[2016-07-07] MEDS: SPIRONOLACTONE 25 MG TAB PO SCH ×2 (09:52→19:14)
[2016-07-07] MEDS: ACETAMINOPHEN 325 MG TAB PO PRN ×3 (09:59→22:29)
[2016-07-07] MEDS: MAGNESIUM HYDROXIDE SUSP 30 ML CUP PO SCH ×2 (10:00→20:54)
[2016-07-07] MEDS ORDERED: BACITRACIN OINT 0.9 GM PKT TOP PRN (10:15)
[2016-07-07] MEDS: NORTRIPTYLINE HCL 10 MG CAP PO SCH (20:51)
[2016-07-07] MEDS: ATORVASTATIN 40 MG TAB PO SCH (20:52)
[2016-07-08] VITALS (7 sets, daily range): BP systolic 99–145; BP diastolic 62–98; PULSE 70–93; RESP 17–18; TEMP 96.6–99.4; O2SAT 95–100
[2016-07-08] MEDS: ENOXAPARIN SODIUM 30 MG/0.3 ML SYRINGE SQ SCH ×2 (01:17→14:09)
[2016-07-08] MEDS: LACTATED RINGER'S 1000 ML INJ 1,000 ML IV SCH ×2 (01:30→15:15)
[2016-07-08] MEDS: TEMAZEPAM 15 MG CAP PO PRN ×2 (01:41→23:07)
[2016-07-08] MEDS: LEVOTHYROXINE SODIUM 50 MCG TAB PO SCH (04:25)
[2016-07-08] MEDS: MULTIVITAMINS/MINERALS THERAPEUTIC TAB PO SCH ×2 (08:47→20:22)
[2016-07-08] MEDS: DULoxetine HCl DR 30 MG CAP PO SCH ×2 (08:47→20:23)
[2016-07-08] MEDS: SENNOSIDES 8.6 MG TAB PO SCH ×2 (08:48→20:24)
[2016-07-08] MEDS: FUROSEMIDE 20 MG TAB PO SCH (08:48)
[2016-07-08] MEDS: SPIRONOLACTONE 25 MG TAB PO SCH ×2 (08:48→18:00)
[2016-07-08] MEDS: METOPROLOL TARTRATE 25 MG TAB PO SCH ×2 (08:48→20:23)
[2016-07-08] MEDS: CHOLECALCIFEROL (VIT D3) 1000 UNIT TAB PO SCH (08:48)
[2016-07-08] MEDS: GABAPENTIN 300 MG CAP PO SCH ×2 (08:48→20:23)
[2016-07-08] MEDS: DOCUSATE SODIUM 100 MG CAP PO SCH ×2 (08:48→20:24)
[2016-07-08] MEDS: LISINOPRIL 20 MG TAB PO SCH (08:49)
[2016-07-08] MEDS: PREGABALIN 75 MG CAP PO SCH (08:49)
[2016-07-08] MEDS: CETIRIZINE HCL 10 MG TAB PO SCH (08:49)
[2016-07-08] MEDS: MAGNESIUM HYDROXIDE SUSP 30 ML CUP PO SCH ×2 (08:51→20:24)
[2016-07-08] MEDS: SODIUM CHLORIDE 0.9% FLUSH 5 ML FLUSH IVF SCH ×2 (08:54→20:24)
[2016-07-08] MEDS ORDERED: HYDR-3580 PO (09:39)
--- NOTE | 2016-07-08 10:07 | PD.ORT.PN ---
Subjective Subjective Remarks pt more comfortable today. Objective Vitals Vital Signs Date Time Temp Pulse Resp B/P Pulse Ox O2 Delivery O2 Flow Rate FiO2 07/08/16 08:00 98.3 76 18 119/81 95 07/08/16 04:40 99.4 93 17 118/71 97 07/08/16 00:35 98.1 88 17 130/68 97 07/07/16 20:40 98.7 87 17 118/57 98 07/07/16 18:10 21 07/07/16 16:00 97.6 83 18 114/64 95 07/07/16 13:52 96 21 07/07/16 12:00 97.0 79 18 96/50 98 I/O 07/07/16 07/07/16 07/07/16 07/08/16 07/08/16 07/08/16 07:00 15:00 23:00 07:00 15:00 23:00 Intake Total 480 ml 720 ml 240 ml 240 ml Balance 480 ml 720 ml 240 ml 240 ml Intake Oral 480 ml 720 ml 240 ml 240 ml # Voids 2 3 3 3 # Bowel Movements 0 0 0 Result Diagram: 07/07/16 0538 Imaging Last 24 hours Impressions Knee X-Ray 07/05/16 1159 Signed Impressions: Service Date/Time: Tuesday, July 05, 2016 15:22 - CONCLUSION: Status post arthroplasty. There is apparent mild widening of the medial joint compared to the lateral joint. The study is mildly rotated. Zac Perez MD Objective Remarks Dressing clean,dry and intact. No calf tenderness verbilized, palpated: COLINDRES Pedal and post tibial pules 2+ palp Assessment & Plan Ortho Post Op Day #: 3 Problem List: Assessment and Plan Cont OOB, PO pain meds, watch temp and cont PT. SNF today. Allison Osuna MD July 08, 2016 10:07
--- NOTE | 2016-07-08 10:10 | HHI.DS ---
Discharge Summary Admission Date July 05, 2016 at 10:16 Discharge Date: July 08, 2016 Admitting Diagnosis Osteoarthritic degeneration left knee Diagnosis: (1) Status post total left knee replacement Diagnosis: Principal Brief History This is a 66 year old female patient CBC/BMP: 07/07/16 0538 Significant Findings Laboratory Tests Test 07/06/16 07/07/16 07:23 05:38 Hemoglobin 10.8 GM/DL 9.7 GM/DL (11.6-15.3) (11.6-15.3) Hematocrit 33.2 % 29.1 % (35.0-46.0) (35.0-46.0) PE at Discharge Dressing clean,dry and intact. No calf tenderness verbilized, palpated: COLINDRES Pedal and post tibial pules 2+ palp Hospital Course Patient underwent a left total knee arthroplasty on day of admission. She received a course of prophylactic IV antibiotics and within 23 hours started on anticoagulation therapy. She continued to improve on by mouth pain meds and then just Tylenol. She remained afebrile vital signs stable and neurovascularly intact and was discharged on third postoperative day to [facility] for continued medical and physical therapy care and wound care. She was given a follow-up in the office for recheck. She was discharged in good condition. Pt Condition on Discharge: Good Discharge Disposition: Discharge to SNF Discharge Instructions Diet Instructions: As Tolerated, No Restrictions Activities You Can Perform: Full Weight Bearing, Shower Only-No Bath Activities to Avoid: Bathing, Driving Allison Osuna MD July 08, 2016 10:10
[2016-07-08] MEDS: ACETAMINOPHEN 325 MG TAB PO PRN ×2 (12:27→20:23)
--- NOTE | 2016-07-08 18:40 | HHI.PR ---
Subjective Remarks complains of "slight pain- left knee" doing very well with PT patient voiding spontaneously, had a good BM Objective Vitals Vital Signs Date Time Temp Pulse Resp B/P Pulse Ox O2 Delivery O2 Flow Rate FiO2 07/08/16 16:00 96.6 70 18 145/98 98 07/08/16 12:00 97.7 81 18 99/67 100 07/08/16 08:00 95 Room Air 07/08/16 08:00 98.3 76 18 119/81 95 07/08/16 04:40 99.4 93 17 118/71 97 07/08/16 00:35 98.1 88 17 130/68 97 07/07/16 20:40 98.7 87 17 118/57 98 I/O 07/07/16 07/07/16 07/07/16 07/08/16 07/08/16 07/08/16 07:00 15:00 23:00 07:00 15:00 23:00 Intake Total 480 ml 720 ml 240 ml 240 ml 600 ml Balance 480 ml 720 ml 240 ml 240 ml 600 ml Intake Oral 480 ml 720 ml 240 ml 240 ml 600 ml # Voids 2 3 3 3 4 # Bowel Movements 0 0 0 3 Result Diagram: 07/07/16 0538 Imaging Last Impressions Chest X-Ray 07/06/16 0000 Signed Impressions: Service Date/Time: Wednesday, July 06, 2016 15:28 - CONCLUSION: 1. No acute cardiopulmonary disease. Morro Pandey MD Knee X-Ray 07/05/16 1159 Signed Impressions: Service Date/Time: Tuesday, July 05, 2016 15:22 - CONCLUSION: Status post arthroplasty. There is apparent mild widening of the medial joint compared to the lateral joint. The study is mildly rotated. Zac Perez MD Objective Remarks awake and alert, oriented to person and place anicteric lungs no rales or wheeezes regular rhythm abdomen- flabby soft, nontender extremities- Left knee- post op dressing in place moves all extremities spontaneously Procedures left total knee arthroplasty performed by Dr. Osuna today on 07/05. A/P Problem List: (1) Osteoarthritis of left knee ICD Code: M17.12 Status: Acute (2) Hypertension ICD Code: I10 Status: Acute (3) Thyroid disease ICD Code: E07.9 Status: Acute (4) Fibromyalgia ICD Code: M79.7 Status: Acute (5) Morbid obesity ICD Code: E66.01 Status: Acute (6) Asthma ICD Code: J45.909 Status: Acute Assessment and Plan Ms. Roberts is a 66-year-old female with a known history of hypertension, hyperlipidemia, hypothyroidism, fibromyalgia and GERD who presented to the hospital for elective left total knee arthroplasty performed by Dr. Osuna today on 07/05. OA of Right Knee- Status post left total knee arthroplasty on 07/05 [place] PO PRN per pain scale. Control nausea, Zofran PRN. Monitor for constipation, Colace 100 mg PO BID scheduled. Wean off TRACTOR MECHANIC HELPER. - Dressing changes per surgery. S/P acute respiratory failure requiring 3L NC on 07/06. RESOLVED, Encouraged IS. O2 supplement as need keep O2 sat > 92 %. Duonebs as need if wheezing. Hypertension, controlled. - Will continue home Lasix 20 mg PO daily. - Continue Lopressor 25 mg PO BID, Lisinopril 40 mg PO daily and Spirolactone 25 mg PO BIDPC. - Monitor. Other medical conditions include hyperthyroidism, fibromyalgia, dyslipidemia, depression, peripheral neuropathy and GERD and are currently stable at this time. Will resume home medications as indicated. DVT prophylaxis: Lovenox 30 mg sq Q12h. SCDs/TEDs. Improved significantly,- good sats on room air now. Pain is controlled by meds. DC planning- awaiting insurance approval for [facility] Giovanna Poe MD July 08, 2016 18:40
[2016-07-08] MEDS: ATORVASTATIN 40 MG TAB PO SCH (20:22)
[2016-07-08] MEDS: NORTRIPTYLINE HCL 10 MG CAP PO SCH (20:22)
[2016-07-08] MEDS ORDERED: HALOPERIDOL LACTATE 5 MG/ML AMP IV PUSH ONE (23:15)
[2016-07-09] MEDS: LACTATED RINGER'S 1000 ML INJ 1,000 ML IV SCH (00:51)
--- NOTE | 2016-07-09 00:55 | RADRPT ---
EXAM DATE/TIME: 07/09/2016 00:23 [facility] COMPARISON: No previous studies available for comparison. INDICATIONS : Altered mental status. RADIATION DOSE: 52.13 CTDIvol (mGy) MEDICAL HISTORY : Hypertension. SURGICAL HISTORY : None. ENCOUNTER: Initial ACUITY: 1 day PAIN SCALE: 0/10 LOCATION: cranial TECHNIQUE: Multiple contiguous axial images were obtained of the head. Using automated exposure control and adj ustment of the mA and/or kV according to patient size, radiation dose was kept as low as reasonably a chievable to obtain optimal diagnostic quality images. FINDINGS: CEREBRUM: The ventricles are normal for age. No evidence of midline shift, mass lesion, hemorrhage or acute in farction. No extra-axial fluid collections are seen. POSTERIOR FOSSA: The cerebellum and brainstem are intact. The 4th ventricle is midline. The cerebellopontine angle i s unremarkable. EXTRACRANIAL: The visualized portion of the orbits is intact. SKULL: The calvaria is intact. No evidence of skull fracture. CONCLUSION: Normal examination. José Luis Gomez MD on July 09, 2016 at 0:54 Board Certified Radiologist. This report was verified electronically.
[2016-07-09 02:01] LABS: BACTERIA, URINE RARE /hpf; BLOOD, URINE NEG (NEG); GLUCOSE,URINE NEG (NEG); KETONE, URINE NEG (NEG); NITRITE,URINE NEG (NEG); SQUAMOUS EPITHELIAL CELL URINE 7 /hpf (0-5); URINE COLOR YELLOW (YELLW/STRAW)
[2016-07-09 02:02] LABS: COMMENT (UR) CULT NOT INDICATED; CULTURE IF INDICATED CULT NOT INDICATED
[2016-07-09] MEDS: ENOXAPARIN SODIUM 30 MG/0.3 ML SYRINGE SQ SCH (02:06)
[2016-07-09] MEDS: LEVOTHYROXINE SODIUM 50 MCG TAB PO SCH ×2 (06:26→09:39)
[2016-07-09 08:00] VITALS: BP 142/63; PULSE 75; RESP 18; TEMP 96.5; O2SAT 94
[2016-07-09] MEDS: SENNOSIDES 8.6 MG TAB PO SCH (09:00)
[2016-07-09] MEDS: SODIUM CHLORIDE 0.9% FLUSH 5 ML FLUSH IVF SCH (09:00)
[2016-07-09] MEDS: DOCUSATE SODIUM 100 MG CAP PO SCH (09:00)
[2016-07-09] MEDS: MAGNESIUM HYDROXIDE SUSP 30 ML CUP PO SCH (09:00)
--- NOTE | 2016-07-09 09:25 | HHI.PR ---
Subjective Remarks Patient seen and examined She had episode of hallucination and agitation overnight however stable this morning Head CAT scan unremarkable and UA negative Daughter and granddaughter by the bedside. Objective Vitals Vital Signs Date Time Temp Pulse Resp B/P Pulse Ox O2 Delivery O2 Flow Rate FiO2 07/09/16 08:00 96.5 75 18 142/63 94 07/08/16 19:42 99 21 07/08/16 19:00 98.4 84 18 110/62 96 07/08/16 16:00 96.6 70 18 145/98 98 07/08/16 12:00 97.7 81 18 99/67 100 I/O 07/08/16 07/08/16 07/08/16 07/09/16 07/09/16 07/09/16 07:00 15:00 23:00 07:00 15:00 23:00 Intake Total 240 ml 600 ml 480 ml 480 ml Balance 240 ml 600 ml 480 ml 480 ml Intake Oral 240 ml 600 ml 480 ml 480 ml # Voids 3 4 2 3 # Bowel Movements 0 3 0 0 Result Diagram: 07/07/16 0538 Imaging Last Impressions Head CT 07/08/16 0000 Signed Impressions: Service Date/Time: Saturday, July 09, 2016 00:23 - CONCLUSION: Normal examination. José Luis Gomez MD Chest X-Ray 07/06/16 0000 Signed Impressions: Service Date/Time: Wednesday, July 06, 2016 15:28 - CONCLUSION: 1. No acute cardiopulmonary disease. Morro Pandey MD Knee X-Ray 07/05/16 1159 Signed Impressions: Service Date/Time: Tuesday, July 05, 2016 15:22 - CONCLUSION: Status post arthroplasty. There is apparent mild widening of the medial joint compared to the lateral joint. The study is mildly rotated. Zac Perez MD Objective Remarks GENERAL: NAD SKIN: Warm and dry. HEAD: Normocephalic. EYES: No scleral icterus. No injection or drainage. NECK: Supple, trachea midline. No JVD or lymphadenopathy. CARDIOVASCULAR: Regular rate and rhythm without murmurs, gallops, or rubs. RESPIRATORY: Breath sounds equal bilaterally. No accessory muscle use. GASTROINTESTINAL: Abdomen soft, non-tender, nondistended. MUSCULOSKELETAL: No cyanosis, or edema. dressing over left knee-neurovascular intact BACK: Nontender without obvious deformity. No CVA tenderness. Procedures left total knee arthroplasty performed by Dr. Osuna today on 07/05. A/P Problem List: (1) Osteoarthritis of left knee ICD Code: M17.12 Status: Acute (2) Hypertension ICD Code: I10 Status: Acute (3) Thyroid disease ICD Code: E07.9 Status: Acute (4) Fibromyalgia ICD Code: M79.7 Status: Acute (5) Morbid obesity ICD Code: E66.01 Status: Acute (6) Asthma ICD Code: J45.909 Status: Acute Assessment and Plan Ms. Roberts is a 66-year-old female with a known history of hypertension, hyperlipidemia, hypothyroidism, fibromyalgia and GERD who presented to the hospital for elective left total knee arthroplasty performed by Dr. Osuna today on 07/05. OA of Right Knee- Status post left total knee arthroplasty on 07/05 [place] PO PRN per pain scale. Control nausea, Zofran PRN. Monitor for constipation, Colace 100 mg PO BID scheduled. - Dressing changes per surgery. S/P acute respiratory failure: RESOLVED, Encouraged IS. O2 supplement as need keep O2 sat > 92 %. Duonebs as need Hypertension, controlled. - Continue home Lasix 20 mg PO daily. - Continue Lopressor 25 mg PO BID, Lisinopril 40 mg PO daily and Spirolactone 25 mg PO BIDPC. - Monitor. Other medical conditions include hyperthyroidism, fibromyalgia, dyslipidemia, depression, peripheral neuropathy and GERD and are currently stable at this time. Continue home medication Encephalopathy: Resolved. Head CT negative and UA negative DVT prophylaxis: Lovenox 30 mg sq Q12h. SCDs/TEDs. Dain Wharton MD July 09, 2016 09:25
[2016-07-09] MEDS: SPIRONOLACTONE 25 MG TAB PO SCH (09:39)
[2016-07-09] MEDS: CETIRIZINE HCL 10 MG TAB PO SCH (09:39)
[2016-07-09] MEDS: CHOLECALCIFEROL (VIT D3) 1000 UNIT TAB PO SCH (09:39)
[2016-07-09] MEDS: PREGABALIN 75 MG CAP PO SCH (09:39)
[2016-07-09] MEDS: DULoxetine HCl DR 30 MG CAP PO SCH (09:40)
[2016-07-09] MEDS: MULTIVITAMINS/MINERALS THERAPEUTIC TAB PO SCH (09:40)
[2016-07-09] MEDS: LISINOPRIL 20 MG TAB PO SCH (09:40)
[2016-07-09] MEDS: METOPROLOL TARTRATE 25 MG TAB PO SCH (09:40)
[2016-07-09] MEDS: FUROSEMIDE 20 MG TAB PO SCH (09:40)
[2016-07-09] MEDS: GABAPENTIN 300 MG CAP PO SCH (09:41)
[2016-07-09] MEDS: ACETAMINOPHEN 325 MG TAB PO PRN (11:03)
--- NOTE | 2016-07-09 11:27 | PD.ORT.PN ---
Subjective Subjective Remarks pt more comfortable and alert today. Objective Vitals Vital Signs Date Time Temp Pulse Resp B/P Pulse Ox O2 Delivery O2 Flow Rate FiO2 07/09/16 08:00 96.5 75 18 142/63 94 07/08/16 19:42 99 21 07/08/16 19:00 98.4 84 18 110/62 96 07/08/16 16:00 96.6 70 18 145/98 98 07/08/16 12:00 97.7 81 18 99/67 100 I/O 07/08/16 07/08/16 07/08/16 07/09/16 07/09/16 07/09/16 07:00 15:00 23:00 07:00 15:00 23:00 Intake Total 240 ml 600 ml 480 ml 480 ml Balance 240 ml 600 ml 480 ml 480 ml Intake Oral 240 ml 600 ml 480 ml 480 ml # Voids 3 4 2 3 # Bowel Movements 0 3 0 0 Result Diagram: 07/07/16 0538 Imaging Last 24 hours Impressions Knee X-Ray 07/05/16 1159 Signed Impressions: Service Date/Time: Tuesday, July 05, 2016 15:22 - CONCLUSION: Status post arthroplasty. There is apparent mild widening of the medial joint compared to the lateral joint. The study is mildly rotated. Zac Perez MD Objective Remarks Dressing clean,dry and intact. No calf tenderness verbilized, palpated: COLINDRES Pedal and post tibial pules 2+ palp Able to ambulate with minimal assist now. Assessment & Plan Ortho Post Op Day #: 4 Problem List: (1) Status post total left knee replacement Assessment and Plan Cont OOB, PO pain meds, watch temp and cont PT. Home with C and PT. Allison Osuna MD July 09, 2016 11:27
[2016-07-09 12:00] VITALS: BP 104/53; PULSE 76; RESP 18; TEMP 98; O2SAT 95
[2016-07-09 12:19] VITALS: O2SAT 93
== END 2016-07-09 13:53 | disposition home health service (06) | DRG 469 ==
LOC: HSDI 07-05 10:16 → EDUNIT# 07-05 13:30 → N06B 07-05 17:56
PROVIDERS: ADMIT Surgery; ATTEND Surgery
PROC: 3E0T3CZ (ICD-10-PCS; 2016-07-05)
PROC: 0SRD0J9 Replacement of Left Knee Joint with Synthetic Substitute, Cemented, Open Approach (ICD-10-PCS; principal; 2016-07-05 11:24)
DX: M17.12 Unilateral primary osteoarthritis, left knee (principal); J96.00 Acute respiratory failure, unspecified whether with hypoxia or hypercapnia; G93.40 Encephalopathy, unspecified; Z68.42 Body mass index [BMI] 45.0-49.9, adult; I10 Essential (primary) hypertension; E66.01 Morbid (severe) obesity due to excess calories; J45.909 Unspecified asthma, uncomplicated; M79.7 Fibromyalgia; E78.5 Hyperlipidemia, unspecified; E03.9 Hypothyroidism, unspecified; K21.9 Gastro-esophageal reflux disease without esophagitis; G62.9 Polyneuropathy, unspecified; F32.9 Major depressive disorder, single episode, unspecified; K59.00 Constipation, unspecified; Z79.899 Other long term (current) drug therapy; Z87.891 Personal history of nicotine dependence
CPT/HCPCS: 70450; 71010; 73560; 81001; 85014; 85018; 86850; 86900; 86901; 94150; C1776; C9290; J1170; J1580; J1630; J1650; J2270; J2370; J2405; J2710; J3010; J3370; J3410; J7050; J7120; L1830

== ENCOUNTER → 2016-06-28 | Outpatient (CLI) | payer OTHER ==
[~2016-06-28] MED LIST: ATOR40TA16 PO; AZEL137S EACH NARE; CENTTAB PO; CETI10 PO; CPMMACHINE; DULO1CAP2 PO; FURO20TA PO; GABA300C5 PO; HYDR-3580 PO; LEVO50TA4 PO; LISI40TA PO; LYRI75CA PO; MACR100C2 PO; METO25TA3 PO; MISC-163; NORT10CA PO; OMEGCAP PO; OMEP20TA PO; PHEN0.4T PO; SPIR25TA PO; VITA100064 PO
[2016-06-28 09:45] LABS: AUTOMATED NEUTROPHIL # 4.5 TH/MM3 (1.8-7.7); BASOPHIL # 0.1 TH/MM3 (0-0.2); BASOPHIL % 0.8 % (0.0-2.0); EOSINOPHIL # 0.4 TH/MM3 (0-0.4); EOSINOPHIL % 5.2 % (0.0-4.0); HEMATOCRIT 39.1 % (35.0-46.0); HEMO FLAGS DIFF FINAL; LYMPH % 28.3 % (9.0-44.0); LYMPHOCYTE # 2.1 TH/MM3 (1.0-4.8); MEAN CELL VOLUME 87.5 FL (80.0-100.0); MEAN CORPUSCULAR HEMOGLOBIN 28.8 PG (27.0-34.0); MONO % 6.2 % (0.0-8.0); NEUT % 59.5 % (16.0-70.0); PLATELET COUNT 237 TH/MM3 (150-450); RED BLOOD COUNT 4.47 MIL/MM3 (4.00-5.30); WHITE BLOOD COUNT 7.5 TH/MM3 (4.0-11.0)
[2016-06-28 10:01] LABS: APTT (PATIENT) 27.9 SEC (24.3-30.1); INTERNATIONAL NORMALIZED RATIO 0.9 RATIO; PROTHROMBIN TIME - PATIENT 10.4 SEC (9.8-11.6)
[2016-06-28 10:38] LABS: ALKALINE PHOSPHATASE 142 U/L (45-117); ALT (GPT) 39 U/L (10-53); ANION GAP 6 MEQ/L (5-15); AST (GOT) 22 U/L (15-37); BICARBONATE 31.2 MEQ/L (21.0-32.0); BLOOD UREA NITROGEN 14 MG/DL (7-18); CHLORIDE 100 MEQ/L (98-107); GLOMERULAR FILTRATION RATE 47 ML/MIN (>89); GLUCOSE,FASTING 97 MG/DL (74-99); POTASSIUM 4.3 MEQ/L (3.5-5.1); SODIUM (NA) 137 MEQ/L (136-145); TOTAL BILIRUBIN ADULT 0.9 MG/DL (0.2-1.0)
[2016-06-28 12:28] LABS: BLOOD, URINE SMALL (NEG); GLUCOSE,URINE NEG (NEG); KETONE, URINE NEG (NEG); NITRITE,URINE NEG (NEG); PH, URINE 5.5 (5.0-8.5); SQUAMOUS EPITHELIAL CELL URINE <1 /hpf (0-5); TRANSITIONAL EPI CELLS, URINE 1 /hpf; URINE COLOR LIGHT-YELLOW (YELLW/STRAW)
[2016-06-28 12:35] LABS: BACTERIA, URINE OCC /hpf; COMMENT (UR) CATH-CULTURE IND; CULTURE IF INDICATED CATH CULTURE IND
--- NOTE | 2016-06-29 13:40 | EKG ---
Date Performed: 06/28/2016 Time Performed: 11:25:48 PTAGE: 66 years EKG: Sinus rhythm WITH FIRST DEGREE AV BLOCK BORDERLINE LEFT AXIS DEVIATION ABNORMAL ECG NO PREVIOUS TRACING DOCTOR: Kyler Avitia Interpretating Date/Time 06/29/2016 13:39:39
== END ==
LOC: CPRE 09:03
PROVIDERS: ATTEND Surgery
DX: Z01.812 Encounter for preprocedural laboratory examination (principal); Z01.810 Encounter for preprocedural cardiovascular examination; I44.0 Atrioventricular block, first degree; R82.99 Other abnormal findings in urine
CPT/HCPCS: 36415; 80053; 81001; 85025; 85610; 85730; 87086; 93005

== ENCOUNTER 2016-07-23 11:19 | Emergency (ER) | payer MEDICARE, MEDICAID ==
[~2016-07-23] VITALS: Ht 152.4 cm; Wt 104.0 kg
[~2016-07-23 11:19] MED LIST changes: -MACR100C2 PO; -PHEN0.4T PO
[2016-07-23 11:24] VITALS: BP 123/71; PULSE 77; RESP 17; TEMP 98.8; O2SAT 95
[2016-07-23 12:05] LABS: BLOOD, URINE LARGE (NEG); GLUCOSE,URINE NEG (NEG); KETONE, URINE NEG (NEG); NITRITE,URINE NEG (NEG); PH, URINE 5.5 (5.0-8.5)
[2016-07-23 12:07] LABS: METHOD OF COLLECTION CLEAN CATCH; URINE COLOR YELLOW (YELLW/STRAW); WBC, URINE INNUM /hpf (0-5)
[2016-07-23 12:08] LABS: BACTERIA, URINE OCC /hpf; COMMENT (UR) CATH-CULTURE IND; CULTURE IF INDICATED CATH CULTURE IND; RBC, URINE 100-200 /hpf (0-3)
[2016-07-23] MEDS ORDERED: MACR100C2 PO (12:17)
[2016-07-23] MEDS ORDERED: PHEN0.4T PO (12:18)
--- NOTE | 2016-07-23 12:18 | PD ---
HPI Chief Complaint: Complaint Time Seen by Provider: 11:33 Travel History International Travel<30 days: No Contact w/Intl Traveler<30days: No Traveled to known affect area: No History of Present Illness HPI 66-year-old female here with complaint of urinary symptoms. Patient is approximately 2-3 weeks status post left knee arthroplasty. She postoperatively had some delirium and had a urinalysis that was negative. In the interim she is been home, admits to poor eating habits due to postoperative course. She's not had 2 days of dysuria, urgency, frequency, small volume urination. This morning she states that she is unable to urinate due to pain. No suprapubic pain, flank pain, fevers or chills. PFSH Past Medical History Arthritis: Yes Asthma: Yes Anxiety: No Depression: Yes Cancer: No Cardiovascular Problems: Yes (HTN) High Cholesterol: Yes Congestive Heart Failure: Yes Diabetes: No Endocrine: Yes Gastrointestinal Disorders: Yes GERD: Yes Genitourinary: No Hepatitis: No Hiatal Hernia: No Hypertension: Yes Immune Disorder: Yes (FIBROMYALGIA) Musculoskeletal: Yes Neurologic: Yes (MUSCLE JERKS AND SOME CONFUSION AT TIMES) Psychiatric: Yes Reproductive: No Respiratory: Yes Thyroid Disease: Yes Influenza Vaccination: No ?: Not Menopausal: Yes Past Surgical History Abdominal Surgery: Yes (APPY) AICD: No Body Medical Devices: NONE Gynecologic Surgery: Yes (HYSTERECTOMY) Joint Replacement: No Pacemaker: No Other Surgery: Yes Social History Alcohol Use: Yes (OCCAS) Tobacco Use: No Substance Use: No Allergies-Medications (Allergen,Severity, Reaction): Coded Allergies: Penicillin (Verified Allergy, Severe, Swelling, 07/23/16) Reported Meds & Prescriptions Reported Meds & Active Scripts Active Pyridium (Phenazopyridine HCl) 100 Mg Tab 100 Mg PO Q8H PRN Macrobid (Nitrofurantoin Monohydrate Macrocrystals) 100 Mg Capsule 100 Mg PO BID Hydrocodone-Acetaminophen 7.5-325 mg Tab 1 Tab PO Q4H PRN Reported Vitamin D (Cholecalciferol) 1,000 Unit Tab 1,000 Units PO DAILY [place]-3 Fish Oil/Vitamin (Fish Oil-Cholecalciferol) 1,000-1,000 Mg Cap 1 Cap PO DAILY Omeprazole 20 Mg Tab 20 Mg PO PRN Atorvastatin (Atorvastatin Calcium) 40 Mg Tab 40 Mg PO HS Nortriptyline (Nortriptyline HCl) 10 Mg Cap 10 Mg PO HS Lyrica (Pregabalin) 75 Mg Cap 75 Mg PO DAILY Lisinopril 40 Mg Tab 40 Mg PO DAILY Levothyroxine (Levothyroxine Sodium) 50 Mcg Tab 50 Mcg PO DAILY Cetirizine (Cetirizine HCl) 10 Mg Tab 10 Mg PO DAILY Furosemide 20 Mg Tab 20 Mg PO DAILY Dymista Nasal [place] (Azelastine-Fluticasone Nasal [place]) 137-50 Mcg [place] 1 [place] EACH NARE BID To each nostril. Metoprolol Tartrate 25 Mg Tab 25 Mg PO BID Spironolactone 25 Mg Tab 25 Mg PO BIDPC Duloxetine DR (Duloxetine HCl) 30 Mg Capdr 30 Mg PO BID Gabapentin 300 Mg Cap 300 Mg PO BID DECREASING DOSE EVERY TWO WEEKS. Review of Systems Except as stated in HPI: all other systems reviewed are Neg Physical Exam Narrative GENERAL: Well-appearing elderly female in no acute distress SKIN: Focused skin assessment warm/dry. HEAD: Normocephalic. EYES: No scleral icterus. No injection or drainage. ENT: Mucous membranes pink and moist. NECK: Supple CARDIOVASCULAR: Regular rate and rhythm. RESPIRATORY: No accessory muscle use. GASTROINTESTINAL: Abdomen soft, non-tender, nondistended. Obese. No CVA tenderness. MUSCULOSKELETAL: Left knee incision healing well NEUROLOGICAL: Awake and alert. Ambulates with walker. Normal speech. PSYCHIATRIC: Appropriate mood and affect; insight and judgment normal. Data Data Last Documented VS Vital Signs Date Time Temp Pulse Resp B/P Pulse Ox O2 Delivery O2 Flow Rate FiO2 07/23/16 11:24 98.8 77 17 123/71 95 Orders Urinalysis - C+S If Indicated (07/23/16 11:29) Cath For Specimen (07/23/16 11:44) Urine Culture (07/23/16 11:54) Labs Laboratory Tests Test 07/23/16 11:54 Urine Collection Type CLEAN CATCH Urine Color YELLOW Urine Turbidity MOD Urine pH 5.5 Urine Specific Inlet 1.015 Urine Protein 100 mg/dL Urine Glucose (UA) NEG mg/dL Urine Ketones NEG mg/dL Urine Occult Blood LARGE Urine Nitrite NEG Urine Bilirubin NEG Urine Leukocyte Esterase MOD Urine RBC 100-200 /hpf Urine WBC INNUM /hpf Urine WBC Clumps MANY Urine Bacteria OCC /hpf Microscopic Urinalysis Comment CATH-CULTURE IND Urine Collection Time 11:54 [place] Medical Decision Making Medical Screen Exam Complete: Yes Emergency Medical Condition: Yes Medical Record Reviewed: Yes Differential Diagnosis 66-year-old female here with 2 days of dysuria urgency and frequency. Symptoms are quite consistent with cystitis, given her recent hospital course she certainly is at risk for resistant bacteria and will obtain urinalysis/culture to evaluate for this. Narrative Course Patient was unable to give specimen and was catheterized with urine that is grossly positive for UTI. We'll discharge to home with Pyridium and Macrobid Diagnosis Primary Impression: Cystitis Referrals: Primary Care Physician as needed Additional Instructions: Antibiotics as prescribed. Pyridium as needed for pain. Med/Other Pt SpecificInfo: Prescription(s) given, No Change to Meds Scripts Phenazopyridine (Pyridium)100 Mg Ray859 Mg PO Q8H PRN (DYSURIA) #6 TAB Ref 0 Prov:Osiris Sánchez MD 07/23/16 Nitrofurantoin Monohydrate Macrocrystals (Macrobid)100 Mg [id number] Mg PO BID #14 CAP Ref 0 Prov:Osiris Sánchez MD 07/23/16 Disposition: 01 DISCHARGE HOME Condition: Stable Osiris Sánchez MD Jul 23, 2016 12:18
== END 2016-07-23 12:26 | disposition home or self-care (01) ==
LOC: PHED 11:19
DX: N30.90 Cystitis, unspecified without hematuria (principal); J45.909 Unspecified asthma, uncomplicated; I10 Essential (primary) hypertension; E78.00 Pure hypercholesterolemia, unspecified; I50.9 Heart failure, unspecified; K21.9 Gastro-esophageal reflux disease without esophagitis
CPT/HCPCS: 81001; 87077; 87086; 87186; 99284; P9612

== ENCOUNTER → 2016-10-27 | Outpatient (CLI) | payer MEDICARE, MEDICAID ==
[~2016-10-27] MED LIST changes: +ADJUSTABLE COMM1 MIS; -CENTTAB PO; +CIPR-9 PO; +GABA600T PO; +MACR100C2 PO; +MEMA1CAP2 PO; -MISC-163; +MULT-65 PO; +OMEP40CA2 PO; +PHEN0.4T PO; +SERO25TA PO; +ULTR50TA5 PO; +WALKER WHEELS/F1 MIS
[2016-10-27 14:51] LABS: AUTOMATED NEUTROPHIL # 5.1 TH/MM3 (1.8-7.7); BASOPHIL # 0.1 TH/MM3 (0-0.2); BASOPHIL % 0.8 % (0.0-2.0); EOSINOPHIL # 0.4 TH/MM3 (0-0.4); EOSINOPHIL % 4.7 % (0.0-4.0); HEMATOCRIT 38.4 % (35.0-46.0); HEMO FLAGS DIFF FINAL; LYMPH % 31.7 % (9.0-44.0); LYMPHOCYTE # 2.9 TH/MM3 (1.0-4.8); MEAN CELL VOLUME 86.5 FL (80.0-100.0); MEAN CORPUSCULAR HEMOGLOBIN 28.5 PG (27.0-34.0); MONO % 7.5 % (0.0-8.0); NEUT % 55.3 % (16.0-70.0); PLATELET COUNT 266 TH/MM3 (150-450); RED BLOOD COUNT 4.44 MIL/MM3 (4.00-5.30); RED CELL DISTRIBUTION WIDTH 15.3 % (11.6-17.2); WHITE BLOOD COUNT 9.2 TH/MM3 (4.0-11.0)
[2016-10-27 14:59] LABS: APTT (PATIENT) 26.9 SEC (24.3-30.1); INTERNATIONAL NORMALIZED RATIO 0.9 RATIO; PROTHROMBIN TIME - PATIENT 10.3 SEC (9.8-11.6)
[2016-10-27 15:10] LABS: ALT (GPT) 23 U/L (10-53); ANION GAP 7 MEQ/L (5-15); AST (GOT) 17 U/L (15-37); BICARBONATE 29.5 MEQ/L (21.0-32.0); BLOOD UREA NITROGEN 10 MG/DL (7-18); CHLORIDE 104 MEQ/L (98-107); GLOMERULAR FILTRATION RATE 46 ML/MIN (>89); GLUCOSE,FASTING 99 MG/DL (74-99); SODIUM (NA) 140 MEQ/L (136-145)
[2016-10-27 15:12] LABS: ALKALINE PHOSPHATASE 113 U/L (45-117); TOTAL BILIRUBIN ADULT 0.6 MG/DL (0.2-1.0)
[2016-10-27 15:15] LABS: BLOOD, URINE NEG (NEG); GLUCOSE,URINE NEG (NEG); KETONE, URINE NEG (NEG); NITRITE,URINE NEG (NEG); PH, URINE 5.5 (5.0-8.5); URINE COLOR LIGHT-YELLOW (YELLW/STRAW)
[2016-10-27 15:18] LABS: COMMENT (UR) CATH-CULT NOT IND; CULTURE IF INDICATED CATH CULTURE NOT IND
--- NOTE | 2016-10-28 14:23 | EKG ---
Date Performed: 10/27/2016 Time Performed: 13:34:40 PTAGE: 66 years EKG: Sinus rhythm WITH FIRST DEGREE AV BLOCK BORDERLINE LEFT AXIS DEVIATION MODERATE VOLTAGE CRITERIA FOR LVH, CONSIDE R NORMAL VARIANT ABNORMAL ECG Compared to prior tracing no significant change PREVIOUS TRACING : 06/28/2016 11.25 DOCTOR: Cooper Osman Interpretating Date/Time 10/28/2016 14:22:46
== END ==
LOC: CPRE 12:58
PROVIDERS: ATTEND Surgery
DX: Z01.812 Encounter for preprocedural laboratory examination (principal); Z01.810 Encounter for preprocedural cardiovascular examination
CPT/HCPCS: 36415; 80053; 81001; 85025; 85610; 85730; 93005

== ENCOUNTER 2016-11-02 06:01 | Inpatient (IN) | payer OTHER, MEDICAID, MEDICARE ==
--- NOTE | 2016-10-28 15:19 | MH ---
cc: Allison SARABIA M.D. DATE OF ADMISSION: 11/02/2016 ADMITTING DIAGNOSIS: Osteoarthritic degeneration right knee now being admitted for right total knee arthroplasty. HISTORY: This pleasant, morbidly obese 66-year-old female is being admitted today for right total knee arthroplasty due to severe painful osteoarthritic degeneration right knee. PAST MEDICAL HISTORY: Other past history over 3 months ago she underwent a left total knee arthroplasty did well but she did have problems with anesthesia. Other past history the patient has a history of depression. hypertension back pain. Thyroid issues. CURRENT MEDICATIONS current medications include 1. Seroquel 2. Namzaric 3. Lasix. 4. Omeprazole. 5. Levothyroxine. 6. Zyrtec. 7. Duloxetine. 8. Lisinopril. 9. Spironolactone. 10. Metoprolol 11. Gabapentin 12. Atorvastatin PAST SURGICAL HISTORY: 1. Previous surgeries other than the left total knee include a rotator cuff repair 2. Right before a hysterectomy 3. appendectomy 4. cyst removal. REVIEW OF SYSTEMS Noncontributory. FAMILY HISTORY Noncontributory. SOCIAL HISTORY: She does not smoke or drink. ALLERGIES PENICILLIN PHYSICAL EXAMINATION IN GENERAL: We find a 58-year female well-developed, well-nourished, alert times three. Complaining of pain in her right knee. VITAL SIGNS: Blood pressure 120/74, pulse 63 and regular, respirations 18, temperature 97.9, pulse oximetry 97% on room air. HEAD, EYES, EARS, NOSE, AND THROAT: Eyes Pupils equal, round, reactive to light and accommodation, extraocular muscles intact Ears, nose, mouth clear. NECK: Supple LUNGS: Clear HEART: Regular rate. ABDOMEN: Soft. Positive bowel sounds, nontender. EXTREMITIES: Reveal her right knee be tender with crepitance on range of motion. NEUROVASCULARLY: neurovascularly intact to her toes. IMPRESSION Severe painful osteoarthritic degeneration right knee. PLAN Admission for right total knee arthroplasty today. The patient given prescription postoperative pain and anticoagulation control in the office and understands to use Hibiclens scrub and Bactroban preoperatively. Plans on going home after surgical stay in the hospital. J. MD CATHLEEN Luz/michael /2:41 PM /2:46 PM
[~2016-11-02] VITALS: Ht 152.4 cm; Wt 107.9 kg
[~2016-11-02 06:01] MED LIST changes: -ADJUSTABLE COMM1 MIS; -CIPR-9 PO; -CPMMACHINE; -HYDR-3580 PO; -LYRI75CA PO; -MACR100C2 PO; -NORT10CA PO; -OMEGCAP PO; -OMEP20TA PO; -PHEN0.4T PO; -ULTR50TA5 PO; -WALKER WHEELS/F1 MIS
[2016-11-02] MEDS ORDERED: ACETAMINOPHEN 1000 MG/100 ML 100 ML IV ONE (06:52)
[2016-11-02] MEDS ORDERED: VANCOMYCIN HCL 1000 MG VIAL ONE (07:03)
[2016-11-02] MEDS ORDERED: CLINDAMYCIN PHOS 900 MG/6 ML VIAL ONE (07:03)
[2016-11-02] MEDS ORDERED: SODIUM CHLOR 0.9% 250 ML INJ 250 ML ONE (07:03)
[2016-11-02] MEDS ORDERED: SODIUM CHLORIDE 0.9% INJ 100 ML ONE (07:04)
[2016-11-02] MEDS ORDERED: GENTAMICIN SULFATE 80 MG/2 ML VIAL ONE (07:19)
[2016-11-02] MEDS ORDERED: LACTATED RINGER'S 1000 ML INJ 1,000 ML ONE (07:19)
[2016-11-02] MEDS ORDERED: FAMOTIDINE 20 MG/2 ML VIAL ONE (07:39)
[2016-11-02] MEDS ORDERED: diphenhydrAMINE HCL 50 MG/ML VIAL IV PRN ×2 (08:00)
[2016-11-02] MEDS ORDERED: LACTATED RINGER'S 1000 ML IV PRN (08:00)
[2016-11-02] MEDS ORDERED: METOPROLOL TARTRATE 25 MG TAB PO PRN (08:00)
[2016-11-02] MEDS ORDERED: CLINDAMYCIN 900 MG/NS 100 ML IV SCH ×2 (08:00)
[2016-11-02] MEDS ORDERED: SODIUM CHLORIDE 0.9% FLUSH 5 ML FLUSH IVF PRN ×2 (08:00)
[2016-11-02] MEDS ORDERED: NALOXONE HCL 0.4 MG/ML AMP IV PRN ×2 (08:00)
[2016-11-02] MEDS ORDERED: CHLORHEXIDINE GLUCONATE 4% SOLN 120 ML BTL TOPICAL SCH (08:00)
[2016-11-02] MEDS ORDERED: TRANEXAMIC ACID INJ 0 MG in SODIUM CHLORIDE 0.9% INJ 100 ML IV SCH ×4 (08:00)
[2016-11-02] MEDS ORDERED: VANCOMYCIN 1000 MG/NS 250 ML (for <70 kg) IV SCH ×2 (08:00)
[2016-11-02] MEDS ORDERED: CHLORHEXIDINE GLUCONATE 2 % 1 PACK (2 CLOTHS) TOPICAL PRN (08:00)
[2016-11-02] MEDS ORDERED: SODIUM CHLORID 0.9% 500 ML IV PRN (08:00)
[2016-11-02] MEDS: TRANEXAMIC ACID IV SCH ×2 (08:00→09:02)
[2016-11-02] MEDS ORDERED: INSULIN HUMAN REGULAR 1,000 UNITS/10 ML VIAL SQ PRN (08:00)
[2016-11-02] MEDS ORDERED: Post-op Orders (for Pharmacy) MISC XX ONE ×2 (08:00)
[2016-11-02] MEDS ORDERED: EXPAREL PERI-ARTICULAR INJECTION (TOTAL VOL. 120 ML) P-ARTICULR SCH ×2 (08:00)
[2016-11-02] MEDS ORDERED: ACETAMINOPHEN/HYDROcodone 325 MG/7.5 MG TAB PO PRN ×4 (08:00)
[2016-11-02] MEDS: SODIUM CHLORIDE 0.9% IV SCH ×2 (08:00→09:02)
[2016-11-02] MEDS ORDERED: ONDANSETRON HCL 4 MG/2 ML VIAL IVP PRN ×2 (08:00)
[2016-11-02] MEDS ORDERED: POVIDONE IODINE 5% (ANTISEPSIS KIT) 4 APPLICATIONS EACH NARE PRN (08:00)
[2016-11-02] MEDS ORDERED: HYDROmorphone HCL PF 1 MG/ML VIAL IV PUSH PRN (08:00)
[2016-11-02] MEDS ORDERED: ACETAMINOPHEN 325 MG TAB PO PRN (08:00)
--- NOTE | 2016-11-02 08:00 | HHI.FF ---
Face to Face Verification Diagnosis: (1) Status post total right knee replacement Physical Therapy Gait training Knee: Total knee, Protocol: Right, Full weight bearing Nursing RN: 3 days/week x 2 weeks Nursing: Dressing changes Dressing Changes: Daily dressing change, 4x4s, Gauze, Paper tape I have seen patient Katie Roberts on 11/02/16. My clinical findings support the need for the requested home health care services because: Limited ability to care for self High risk of falls I certify that my clinical findings support that this patient is homebound because: Unsteady gait/balance Allison Osuna MD Nov 02, 2016 08:00
[2016-11-02] MEDS ORDERED: WALKER WHEELS/F1 MIS (08:03)
[2016-11-02] MEDS ORDERED: CPMMACHINE (08:03)
[2016-11-02] MEDS ORDERED: ADJUSTABLE COMM1 MIS (08:03)
[2016-11-02] MEDS ORDERED: APIXABAN 2.5 MG TABLET PO SCH (09:00)
[2016-11-02] MEDS ORDERED: SODIUM CHLORIDE 0.9% FLUSH 5 ML FLUSH IVF SCH (09:00)
[2016-11-02] MEDS: SODIUM CHLORIDE 0.9% FLUSH 5 ML FLUSH IVF SCH ×2 (09:00→21:00)
[2016-11-02] MEDS ORDERED: NON-FORMULARY DRUG (Multiple Vitamin (Multi-Vitamin Daily) 1 TAB) PO SCH (09:00)
[2016-11-02] MEDS ORDERED: SPIRONOLACTONE 25 MG TAB PO SCH (09:00)
[2016-11-02] MEDS ORDERED: BUPIVACAINE LIPOSOME PF 1.3% 20 ML VIAL ONE (09:30)
[2016-11-02] MEDS ORDERED: AZELASTINE NASAL SCH (10:00)
[2016-11-02] MEDS ORDERED: FLUTICASONE PROPIONATE NASAL SCH (10:00)
[2016-11-02] MEDS ORDERED: DO NOT ADM ANY ANTICOAGULANT DRUGS PRN (10:58)
[2016-11-02] MEDS ORDERED: TRANEXAMIC ACID IV SCH (11:00)
[2016-11-02] MEDS ORDERED: SODIUM CHLORIDE 0.9% IV SCH (11:00)
[2016-11-02] MEDS ORDERED: *HYDROmorphone PF 1 MG VIAL PERIprocedural Use ONLY ONE ×2 (11:10→11:18)
[2016-11-02] MEDS: LACTATED RINGER'S 1000 ML INJ 1,000 ML IV SCH ×2 (11:50→20:21)
--- NOTE | 2016-11-02 11:51 | RADRPT ---
EXAM DATE/TIME: 11/02/2016 11:19 [facility] COMPARISON: No previous studies available for comparison. INDICATIONS : Post op right total knee. MEDICAL HISTORY : Hypertension. Hypercholesterolemia. Congestive heart failure. Asthma. SURGICAL HISTORY : None. ENCOUNTER: Initial ACUITY: 1 day PAIN SCORE: 10/10 LOCATION: Right Knee FINDINGS: Two view examination of the right knee demonstrates no evidence of fracture or dislocation. Right kn ee arthroplasty. Postsurgical changes. No hardware loosening good Bony mineralization is normal. CONCLUSION: Right knee arthroplasty. Dain Metz MD on November 02, 2016 at 11:47 Board Certified Radiologist. This report was verified electronically.
[2016-11-02] MEDS ORDERED: ONDANSETRON HCL 4 MG/2 ML VIAL IV PUSH ONE (12:00)
[2016-11-02] MEDS ORDERED: ROCURONIUM INJ 50 MG/5 ML SYRINGE IV PUSH ONE (12:00)
[2016-11-02] MEDS ORDERED: PHENYLEPH/NS 1000 MCG/10 ML SYR IV ONE (12:00)
[2016-11-02] MEDS ORDERED: DEXAMETHASONE SOD PHOS 4 MG/ML VIAL IV ONE (12:00)
[2016-11-02] MEDS ORDERED: ePHEDrine/NS 25 MG/5 ML SYR IV ONE (12:00)
[2016-11-02] MEDS ORDERED: LIDOCAINE HCL 1% PF 5 ML AMPULE OTHER ONE (12:00)
[2016-11-02] MEDS ORDERED: MIDAZOLAM HCL 2 MG/2 ML VIAL IV ONE (12:00)
[2016-11-02] MEDS ORDERED: KETOROLAC TROMETHAMINE 30 MG/ML (IVP) VIAL IV PUSH ONE (12:00)
[2016-11-02] MEDS ORDERED: PROPOFOL 200 MG/20 ML AMP IV ONE (12:00)
[2016-11-02 15:38] VITALS: BP 115/61; PULSE 99; RESP 19; TEMP 95.5; O2SAT 95
[2016-11-02] MEDS: CLINDAMYCIN INJ 900 MG in SODIUM CHLORIDE 0.9% INJ 100 ML IV SCH (16:03)
--- NOTE | 2016-11-02 16:19 | PD.CONS ---
HPI Service [facility] Consult Requested By Dr. Osuna. Reason for Consult Medical management Primary Care Physician Franklin Rodriguez MD Diagnoses: (1) Osteoarthritis of right knee (2) Fibromyalgia (3) Thyroid disease (4) Hypertension History of Present Illness 66-year-old female with a medical history significant for osteoarthritis, hypertension, hypothyroidism, fibromyalgia, morbid obesity admitted to the hospital for elective right knee replacement. The patient has had ongoing issues with osteoarthritis. She previously had a left knee replacement. She returned to the hospital for right knee replacement. She is seen postoperatively in her room. She reports feeling okay. Reviewed history at length with the patient. Family in the room noted she had issues with hallucinations and confusion at the last hospitalization. She has since been followed by neurology and workup is ongoing for possible dementia. She was started on Seroquel which has been helping with hallucinations and confusions. Currently her pain is well controlled. Feels tired otherwise has no other complaints. Review of Systems Constitutional: DENIES: Fever, Chills Respiratory: DENIES: Cough, Shortness of breath Cardiovascular: DENIES: Chest pain, Palpitations Gastrointestinal: DENIES: Nausea, Vomiting Genitourinary: DENIES: Dysuria Musculoskeletal: COMPLAINS OF: Joint pain, Muscle aches, Stiffness Except as stated in HPI: all other systems reviewed are Neg Past Family Social History Allergies: Coded Allergies: penicillin G (Unverified Allergy, Severe, Swelling, 11/02/16) Past Medical History osteoarthritis, hypertension, hypothyroidism, fibromyalgia, morbid obesity Past Surgical History Appendectomy Hysterectomy Left elbow surgery Resurgery Right rotator cuff repair Left knee replacement Neck Surgery Reported Medications Reported Meds & Active Scripts Active Reported Multi-Vitamin Daily (Multiple Vitamin) 1 Tab Tab 1 Tab PO DAILY Seroquel (Quetiapine Fumarate) 25 Mg Tab 25 Mg PO HS Namzaric (Memantine-Donepezil) 28-10 Mg Cap 1 Cap PO DAILY Omeprazole 40 Mg Cap 40 Mg PO DAILY Gabapentin 300 Mg Cap 900 Mg PO HS Gabapentin 600 Mg Tab 600 Mg PO DAILY Vitamin D3 (Cholecalciferol) 1,000 Unit Tab 1,000 Units PO DAILY Atorvastatin (Atorvastatin Calcium) 40 Mg Tab 40 Mg PO HS Lisinopril 40 Mg Tab 40 Mg PO DAILY Levothyroxine (Levothyroxine Sodium) 50 Mcg Tab 50 Mcg PO DAILY Cetirizine (Cetirizine HCl) 10 Mg Tab 10 Mg PO DAILY Furosemide 20 Mg Tab 20 Mg PO DAILY Dymista Nasal [place] (Azelastine-Fluticasone Nasal [place]) 137-50 Mcg [place]ut[place] 1 [place]ut[place] EACH NARE BID To each nostril. Metoprolol Tartrate 25 Mg Tab 25 Mg PO BID Spironolactone 25 Mg Tab 25 Mg PO BIDPC Duloxetine DR (Duloxetine HCl) 30 Mg Capdr 60 Mg PO BID Family History Reviewed and is noncontributory. Social History Patient does not smoke. Uses alcohol on occasion. Physical Exam Vital Signs Vital Signs Date Time Temp Pulse Resp B/P (MAP) Pulse Ox O2 Delivery O2 Flow Rate FiO2 11/02/16 15:38 95.5 99 19 115/61 (79) 95 11/02/16 13:30 62 16 105/55 (72) 95 Nasal Cannula 2 11/02/16 13:00 63 15 111/56 (74) 95 Nasal Cannula 2 11/02/16 12:45 66 16 117/75 (89) 95 Nasal Cannula 3 11/02/16 12:30 63 16 118/64 (82) 95 Nasal Cannula 3 11/02/16 12:15 63 15 130/65 (86) 93 Nasal Cannula 3 11/02/16 12:00 63 16 123/64 (83) 94 Nasal Cannula 3 11/02/16 11:45 80 18 126/63 (84) 94 Nasal Cannula 3 11/02/16 11:30 63 18 105/55 (72) 94 Nasal Cannula 3 11/02/16 11:15 63 15 111/56 (74) 95 Simple Mask 6 11/02/16 10:56 97.9 69 15 127/65 (85) 93 Simple Mask 6 11/02/16 06:30 97.6 68 22 117/75 (89) 99 Physical Exam CONSTITUTIONAL/GENERAL: This is an adequately nourished patient, in no apparent distress. Vital signs reviewed SKIN: No jaundice, rashes, or concerning lesions. Not diaphoretic. HEAD: Atraumatic. Normocephalic. EYES: Pupils equal and round and reactive. Extra ocular motions are intact. No scleral icterus. No injection or drainage. ENT: Hearing grossly normal. Nose without drainage. Throat without visible erythema, exudates, masses, or lesions. NECK: Trachea midline. Neck is supple, non-tender. No palpable thyroid enlargement or nodularity. CARDIOVASCULAR: Normal rate and regular rhythm without murmurs, gallops, or rubs. No JVD. Peripheral pulses 2+ and symmetric. RESPIRATORY/CHEST: Symmetric, unlabored respirations. Breath sounds equal and clear to auscultation bilaterally. No wheezes, crackles, rales, or rhonchi. GASTROINTESTINAL: Abdomen soft, non-tender, non-distended. No hepato- splenomegaly, or palpable masses. No guarding. Bowel sounds present. MUSCULOSKELETAL: Status post right knee replacement. Knee is wrapped and appear intact. Neurovascularly intact distally at the toes. NEUROLOGICAL: Awake and alert. Motor and sensory grossly within normal limits. Follows commands. Move all extremities spontaneously. No focal deficits. PSYCHIATRIC: No obvious mood problems. No apparent hallucinations or other psychotic thought process. Imaging Last Impressions Knee X-Ray 11/02/16 0751 Signed Impressions: Service Date/Time: Wednesday, November 02, 2016 11:19 - CONCLUSION: Right knee arthroplasty. Dain Metz MD Assessment and Plan Problem List: (1) Osteoarthritis of right knee ICD Code: M17.11 - Unilateral primary osteoarthritis, right knee (2) Hypertension ICD Code: I10 - Essential (primary) hypertension Status: Acute (3) Morbid obesity ICD Code: E66.01 - Morbid (severe) obesity due to excess calories Status: Acute (4) Thyroid disease ICD Code: E07.9 - Disorder of thyroid, unspecified Status: Acute (5) Fibromyalgia ICD Code: M79.7 - Fibromyalgia Status: Acute Assessment and Plan 66-year-old female admitted for elective right knee replacement. Severe osteoarthritis involving the right knee. Patient is status post arthroplasty. - Pain control, PT has tolerated. Bowel regimen - Orthopedic surgery following. Routine postoperative care. Hypertension, controlled. - Continue home Lasix 20 mg PO daily. - Continue Lopressor 25 mg PO BID, Lisinopril 40 mg PO daily and Spirolactone 25 mg PO BIDPC. - Monitor. Continue chronic medications for hyperthyroidism, fibromyalgia, dyslipidemia, depression, peripheral neuropathy and GERD History of delirium postoperatively: Patient reportedly being worked up outpatient for dementia. Continue Seroquel, Cymbalta. Minimize narcotics as tolerated. Continue to follow. DVT prophylaxis: On [place], SCDs/TEDs. Gaurav Coker MD Nov 02, 2016 16:19
[2016-11-02] MEDS: SPIRONOLACTONE 25 MG TAB PO SCH (17:08)
[2016-11-02 20:25] VITALS: BP 99/56; PULSE 65; RESP 17; TEMP 96.5; O2SAT 94
[2016-11-02 20:28] VITALS: O2SAT 94
[2016-11-02] MEDS: METOPROLOL TARTRATE 25 MG TAB PO SCH (21:00)
[2016-11-02] MEDS ORDERED: TEMAZEPAM 15 MG CAP PO PRN (21:00)
[2016-11-02] MEDS: ATORVASTATIN 40 MG TAB PO SCH (21:27)
[2016-11-02] MEDS: ACETAMINOPHEN 325 MG TAB PO PRN (21:27)
[2016-11-02] MEDS: GABAPENTIN 300 MG CAP PO SCH (21:29)
[2016-11-02] MEDS: QUEtiapine FUMARATE 25 MG TAB PO SCH (21:30)
[2016-11-02] MEDS: DULoxetine HCl DR 60 MG CAP PO SCH (21:31)
[2016-11-02 23:45] VITALS: BP 87/50; PULSE 74; RESP 18; TEMP 96.7; O2SAT 94
[2016-11-03] MEDS: SODIUM CHLOR 0.9% 1000 ML INJ 1,000 ML IV SCH ×2 (00:45→14:42)
[2016-11-03] MEDS: CLINDAMYCIN INJ 900 MG in SODIUM CHLORIDE 0.9% INJ 100 ML IV SCH ×2 (00:52→06:29)
[2016-11-03 04:10] VITALS: BP 87/50; PULSE 72; RESP 18; TEMP 98; O2SAT 92
[2016-11-03] MEDS: LEVOTHYROXINE SODIUM 50 MCG TAB PO SCH (07:52)
[2016-11-03] MEDS: ACETAMINOPHEN 325 MG TAB PO PRN ×2 (07:52→13:21)
[2016-11-03 08:00] VITALS: BP 94/59; PULSE 65; RESP 18; TEMP 97.4; O2SAT 93
--- NOTE | 2016-11-03 08:47 | MP ---
cc: Allison OSUNA M.D. DATE OF SURGERY 11/02/2016 PREOPERATIVE DIAGNOSIS Severe osteoarthritic degeneration right knee in a morbidly obese person. POSTOPERATIVE DIAGNOSIS Severe osteoarthritic degeneration right knee in a morbidly obese person. SURGERY PERFORMED Right total knee arthroplasty using Consensus knee system with Bespoke protocol, size 4 femur, 1 tibia, 14 standard insert and size 2 patella with two batches of DePuy cement. SURGEON Dr. Osuna BUFFING TURNER AND COUNTER Mich CORONADO ANESTHESIA General intubation and block. PROCEDURE: After successful induction of anesthesia, the patient is placed on the operating room table in the supine position. The knee is prepped and draped in the usual manner. A tourniquet is inflated at the upper thigh and set to 300 mmHg pressure after exsanguination of the lower extremity. A longitudinal incision is made extending from 3 inches proximal to the superior pole of the patella, across the patella in longitudinal fashion, and down past the insertion of the tibial tubercle into the proximal tibia. The incision is carried down through subcutaneous tissue along the medial aspect of the patella and retinaculum, down through the capsule to expose the knee joint. The patella and patellar tendon are freed up enough to allow the patella to be inverted and retracted off the lateral side of the knee joint. The knee joint is left exposed. Small osteophytes are removed. All soft tissue is removed to allow proper position of the femoral and tibial cutting jig guide. The first femoral jig is then inserted along the distal end of the femur after first measuring to decide whether this is a small, medium, or large component. The notch is then drilled and the tibial cutting guide inserted into the femoral cutting guide, along with the ankle brace to allow for proper measurement of the tibial cutting surface that needed to be resected. Pins are inserted into the tibial cutting jig and femoral cutting jig to hold them in place. An oscillating saw is then used to resect the surface of the tibia. The surface of the tibia is then completely removed using sharp and blunt dissection. The anterior and posterior cuts of the femur are then made as well using an oscillating saw through the cutting guide. All guides are then removed and the varus/valgus angulation cutting guide applied to the femur for proper measurement of the proper amount of valgus. The anterior cutting guide for the femur is then inserted at the anterior femoral cuts made. Next, the first block trial is inserted into the femur to allow for proper condyle drill holes to be made which are then made followed by removal of the bone between the condyles using an oscillating saw as well as the bone removed at the most posterior surface of the condyle. After this, this guide is removed and the chamfer cuts made using the chamfer cutting guide from both anterior and posterior. Next, the femoral trial is then inserted, the tibial surface reflected anterior to expose the tibial surface and a tibial stem guide is inserted after first measuring for a standard, standard plus, large, or large plus surface to be used. After the stem is impacted the trial tibial surface is applied followed by the trial meniscal components. After full range of motion is found with the appropriate length meniscal components varying the patella is prepared by resecting the posterior aspect of the patella using an oscillating saw, inserting a trial. The trial is then removed and the cruciate cutting guide applied using the bur to cut the cruciate cuts. After cruciate cuts are made all trials are removed. The wound is irrigated copiously with antibiotic solution and Water P[place] and the actual components inserted into place using the right total knee arthroplasty using Consensus knee system with Bespoke protocol, size 4 femur, 1 tibia, 14 standard insert and size 2 patella with two batches of DePuy cement. It should be noted that a lateral retinacular release and extended time needed for removal of large osteophytosis and for centering of the patella in the patellofemoral groove along with 45 minutes extra time for extra exposure and sewing as the patient was quite large and morbidly obese. After the cement has hardened and the components are found to have full range of motion with no instability, the tourniquet is deflated, total tourniquet time being 61 minutes at 300 mmHg pressure. Meticulous hemostasis was achieved. 1000 cc of Exparel was inserted around the knee joint for extra pain control. The deep fascia was approximated with some interrupted #1 Vicryl for extra stabilization and repair, then #2 Quill and interrupted and running #2-0, 3-0 and 4-0 Monocryl sutures, Steri-Strips, sterile dressing and knee immobilizer. DRAINS No drain utilized. ESTIMATED BLOOD LOSS 100 cc. COUNTS Sponge and suture counts were correct. The patient tolerated the procedure well and left the Operating Room in satisfactory condition. Mich CORONADO was present during the entire procedure to include patient positioning and the procedure. The medical necessity of the nurse practitioner cutting table operator first was indicated in this case due to the surgical complexity of the case itself. During the surgical case the surgical scrub technologist was working the back table while my surgical rn [employer] SCI[employer]ES DEPARTMENT CHAIR was directly assisting me. J. Cooper Osuna MD JRJerome/SSB /10:26 AM /8:27 AM
[2016-11-03] MEDS: SODIUM CHLORIDE 0.9% FLUSH 5 ML FLUSH IVF SCH ×2 (09:00→20:36)
[2016-11-03] MEDS ORDERED: MEMANTINE DONEPEZIL PO SCH (09:00)
[2016-11-03] MEDS: LISINOPRIL 20 MG TAB PO SCH (09:00)
[2016-11-03] MEDS: FUROSEMIDE 20 MG TAB PO SCH (09:00)
[2016-11-03] MEDS: METOPROLOL TARTRATE 25 MG TAB PO SCH ×2 (09:00→20:36)
[2016-11-03] MEDS: SPIRONOLACTONE 25 MG TAB PO SCH ×2 (09:00→18:22)
[2016-11-03] MEDS: PANTOPRAZOLE SOD 40 MG DELAYED RELEASE TAB PO SCH (09:49)
[2016-11-03] MEDS: CHOLECALCIFEROL (VIT D3) 1000 UNIT TAB PO SCH (09:50)
[2016-11-03] MEDS: GABAPENTIN 300 MG CAP PO SCH ×2 (09:50→20:34)
[2016-11-03] MEDS: CETIRIZINE HCL 10 MG TAB PO SCH (09:50)
[2016-11-03] MEDS: DULoxetine HCl DR 60 MG CAP PO SCH ×2 (09:51→20:34)
[2016-11-03] MEDS: APIXABAN 2.5 MG TABLET PO SCH ×2 (09:58→20:34)
[2016-11-03 11:28] LABS: HEMATOCRIT 31.8 % (35.0-46.0); REVIEW FLAG FINAL
[2016-11-03 11:53] VITALS: BP 119/69; PULSE 75; RESP 18; TEMP 97.6; O2SAT 98
[2016-11-03] MEDS: POLYETHYLENE GLYCOL 17 GM PKG PO SCH ×2 (14:41→20:34)
--- NOTE | 2016-11-03 14:47 | PD.ORT.PN ---
Subjective Subjective Remarks pt painful at moment. Objective Vitals Vital Signs Date Time Temp Pulse Resp B/P (MAP) Pulse Ox O2 Delivery O2 Flow Rate FiO2 11/03/16 11:53 97.6 75 18 119/69 (86) 98 11/03/16 08:00 97.4 65 18 94/59 (71) 93 11/03/16 04:10 98.0 72 18 87/50 (62) 92 11/02/16 23:45 96.7 74 18 87/50 (62) 94 11/02/16 20:28 94 11/02/16 20:25 96.5 65 17 99/56 (70) 94 11/02/16 19:10 Nasal Cannula 2.00 11/02/16 15:38 95.5 99 19 115/61 (79) 95 11/02/16 14:50 97.8 66 16 107/56 (73) 98 Nasal Cannula 2 I/O 11/02/16 11/02/16 11/02/16 11/03/16 11/03/16 11/03/16 07:00 15:00 23:00 07:00 15:00 23:00 Intake Total 2680 ml 360 ml 970 ml 100 ml Output Total 400 ml 300 ml 500 ml 250 ml Balance 2280 ml 60 ml 470 ml -150 ml Intake Oral 360 ml 240 ml IV Total 680 ml 730 ml 100 ml Other 2000 ml Output Urine Total 300 ml 300 ml 500 ml 250 ml Estimated Blood Loss 100 ml # Bowel Movements 0 0 Result Diagram: 11/03/16 1027 Objective Remarks Dressing dry and intact. Ambulating well with walker. Assessment & Plan Ortho Post Op Day #: 1 Problem List: Assessment and Plan Doing well. Switch pain meds to Ultram. Home tomorrow with HHC and PT. Allison Osuna MD Nov 03, 2016 14:47
[2016-11-03] MEDS ORDERED: ULTR50TA5 PO (14:50)
--- NOTE | 2016-11-03 14:52 | HHI.DS ---
Discharge Summary Admission Date Nov 02, 2016 at 06:01 Discharge Date: Nov 04, 2016 Admitting Diagnosis Osteo-arthritic degeneration right knee Diagnosis: (1) Status post total right knee replacement Diagnosis: Principal ICD Codes: Z96.651 - Presence of right artificial knee joint Brief History This is a 66 year old female patient CBC/BMP: 11/03/16 1027 Significant Findings Laboratory Tests Test 11/03/16 10:27 Hemoglobin 10.4 GM/DL (11.6-15.3) Hematocrit 31.8 % (35.0-46.0) PE at Discharge Dressing dry and intact. Ambulating well with walker. Hospital Course Patient underwent a right total knee arthroplasty on day of admission. She received a course of prophylactic IV antibiotics and within 23 hours started on anticoagulation therapy. She continued to improve tolerating food and fluids well began out of bed ambulating with a walker and help. She received daily wound care and tolerated by mouth pain meds. She was discharged to home with home health care on the second day postoperatively with instructions for home healthcare physical therapy and follow-up appointment in the office. Patient discharged in good condition. Pt Condition on Discharge: Good Discharge Disposition: Disch w/ Home Health Serv Discharge Instructions Diet Instructions: As Tolerated, No Restrictions Activities You Can Perform: Weight Bearing as Jose Antonio, Shower Only-No Bath Activities to Avoid: Bathing, Driving Allison Osuna MD Nov 03, 2016 14:52
[2016-11-03 16:00] VITALS: BP 128/73; PULSE 70; RESP 18; TEMP 98.1; O2SAT 99
[2016-11-03] MEDS: traMADol HCL 50 MG TAB PO PRN ×2 (16:56→20:35)
[2016-11-03 17:56] VITALS: O2SAT 99
--- NOTE | 2016-11-03 19:13 | HHI.PR ---
Subjective Remarks Patient states that she can't sleep well Pain is controlled had constipation earlier Objective Vitals Vital Signs Date Time Temp Pulse Resp B/P (MAP) Pulse Ox O2 Delivery O2 Flow Rate FiO2 11/03/16 17:56 99 21 11/03/16 16:00 98.1 70 18 128/73 (91) 99 11/03/16 11:53 97.6 75 18 119/69 (86) 98 11/03/16 08:00 97.4 65 18 94/59 (71) 93 11/03/16 04:10 98.0 72 18 87/50 (62) 92 11/02/16 23:45 96.7 74 18 87/50 (62) 94 11/02/16 20:28 94 11/02/16 20:25 96.5 65 17 99/56 (70) 94 I/O 11/02/16 11/02/16 11/02/16 11/03/16 11/03/16 11/03/16 07:00 15:00 23:00 07:00 15:00 23:00 Intake Total 2680 ml 360 ml 970 ml 700 ml Output Total 400 ml 300 ml 500 ml 250 ml Balance 2280 ml 60 ml 470 ml 450 ml Intake Oral 360 ml 240 ml 600 ml IV Total 680 ml 730 ml 100 ml Other 2000 ml Output Urine Total 300 ml 300 ml 500 ml 250 ml Estimated Blood Loss 100 ml # Voids 2 # Bowel Movements 0 0 0 Result Diagram: 11/03/16 1027 Imaging Last Impressions Knee X-Ray 11/02/16 0751 Signed Impressions: Service Date/Time: Wednesday, November 02, 2016 11:19 - CONCLUSION: Right knee arthroplasty. Dain Metz MD Objective Remarks CONSTITUTIONAL/GENERAL: This is an adequately nourished patient, in no apparent distress. Vital signs reviewed SKIN: No jaundice, rashes, or concerning lesions. Not diaphoretic. HEAD: Atraumatic. Normocephalic. EYES: Pupils equal and round and reactive. Extra ocular motions are intact. No scleral icterus. No injection or drainage. ENT: Hearing grossly normal. Nose without drainage. Throat without visible erythema, exudates, masses, or lesions. NECK: Trachea midline. Neck is supple, non-tender. No palpable thyroid enlargement or nodularity. CARDIOVASCULAR: Normal rate and regular rhythm without murmurs, gallops, or rubs. No JVD. Peripheral pulses 2+ and symmetric. RESPIRATORY/CHEST: Symmetric, unlabored respirations. Breath sounds equal and clear to auscultation bilaterally. No wheezes, crackles, rales, or rhonchi. GASTROINTESTINAL: Abdomen soft, non-tender, non-distended. No hepato- splenomegaly, or palpable masses. No guarding. Bowel sounds present. MUSCULOSKELETAL: Status post right knee replacement. Knee dressing appears intactt. Neurovascularly intact distally at the toes. NEUROLOGICAL: Awake and alert. Motor and sensory grossly within normal limits. Follows commands. Move all extremities spontaneously. No focal deficits. PSYCHIATRIC: No obvious mood problems. No apparent hallucinations or other psychotic thought process. A/P Problem List: (1) Osteoarthritis of right knee ICD Code: M17.11 - Unilateral primary osteoarthritis, right knee (2) Hypertension ICD Code: I10 - Essential (primary) hypertension Status: Acute (3) Morbid obesity ICD Code: E66.01 - Morbid (severe) obesity due to excess calories Status: Acute (4) Thyroid disease ICD Code: E07.9 - Disorder of thyroid, unspecified Status: Acute (5) Fibromyalgia ICD Code: M79.7 - Fibromyalgia Status: Acute Assessment and Plan 66-year-old female admitted for elective right knee replacement. Severe osteoarthritis involving the right knee. Patient is status post arthroplasty. - Pain control, PT has tolerated. Bowel regimen - Orthopedic surgery following. Routine postoperative care. Hypertension, controlled. - Continue home Lasix 20 mg PO daily. - Continue Lopressor 25 mg PO BID, Lisinopril 40 mg PO daily and Spirolactone 25 mg PO BIDPC. - Monitor. Insomnia - Patient's daughter states that she has used Nortriptyline in the past. Will give once at bedtime. Continue chronic medications for hyperthyroidism, fibromyalgia, dyslipidemia, depression, peripheral neuropathy and GERD History of delirium postoperatively: Patient reportedly being worked up outpatient for dementia. Continue Seroquel, Cymbalta. Minimize narcotics as tolerated. Continue to follow. DVT prophylaxis: On [place], SCDs/TEDs. Miguel A Estrada MD Nov 03, 2016 19:13
[2016-11-03 19:45] VITALS: BP 127/64; PULSE 74; RESP 18; TEMP 97.2; O2SAT 100
[2016-11-03] MEDS ORDERED: NORTRIPTYLINE HCL 10 MG CAP PO ONE (20:30)
[2016-11-03] MEDS: MULTIVITAMINS/MINERALS THERAPEUTIC TAB PO SCH (20:34)
[2016-11-03] MEDS: DOCUSATE SODIUM 100 MG CAP PO SCH (20:35)
[2016-11-03] MEDS: ATORVASTATIN 40 MG TAB PO SCH (20:35)
[2016-11-03] MEDS: QUEtiapine FUMARATE 25 MG TAB PO SCH (20:35)
[2016-11-03] MEDS ORDERED: MULTIVITAMINS/MINERALS THERAPEUTIC TAB PO SCH (21:00)
[2016-11-03] MEDS ORDERED: DOCUSATE SODIUM 100 MG CAP PO SCH (21:00)
[2016-11-04] VITALS: BP 120/82; PULSE 75; RESP 18; TEMP 97.2; O2SAT 97
[2016-11-04] MEDS: traMADol HCL 50 MG TAB PO PRN ×2 (02:12→07:55)
[2016-11-04 07:04] LABS: HEMATOCRIT 29.4 % (35.0-46.0); REVIEW FLAG FINAL
[2016-11-04 07:50] VITALS: BP 114/44; PULSE 76; RESP 19; TEMP 99.6; O2SAT 91
[2016-11-04] MEDS: POLYETHYLENE GLYCOL 17 GM PKG PO SCH (07:55)
[2016-11-04] MEDS: APIXABAN 2.5 MG TABLET PO SCH (07:57)
[2016-11-04] MEDS: DULoxetine HCl DR 60 MG CAP PO SCH (07:57)
[2016-11-04] MEDS: DOCUSATE SODIUM 100 MG CAP PO SCH (07:57)
[2016-11-04] MEDS: PANTOPRAZOLE SOD 40 MG DELAYED RELEASE TAB PO SCH (07:57)
[2016-11-04] MEDS: MULTIVITAMINS/MINERALS THERAPEUTIC TAB PO SCH (07:57)
[2016-11-04] MEDS: FUROSEMIDE 20 MG TAB PO SCH (07:57)
[2016-11-04] MEDS: SPIRONOLACTONE 25 MG TAB PO SCH (07:57)
[2016-11-04] MEDS: CHOLECALCIFEROL (VIT D3) 1000 UNIT TAB PO SCH (07:57)
[2016-11-04] MEDS: CETIRIZINE HCL 10 MG TAB PO SCH (07:58)
[2016-11-04] MEDS: GABAPENTIN 300 MG CAP PO SCH (07:58)
[2016-11-04] MEDS: SODIUM CHLORIDE 0.9% FLUSH 5 ML FLUSH IVF SCH (08:02)
[2016-11-04] MEDS: METOPROLOL TARTRATE 25 MG TAB PO SCH (08:02)
[2016-11-04] MEDS: LISINOPRIL 20 MG TAB PO SCH (08:03)
[2016-11-04] MEDS: LEVOTHYROXINE SODIUM 50 MCG TAB PO SCH (08:06)
[2016-11-04] MEDS ORDERED: BACITRACIN OINT 0.9 GM PKT TOP PRN ×2 (10:15)
[2016-11-04] MEDS: ACETAMINOPHEN 325 MG TAB PO PRN (11:51)
[2016-11-04 12:00] VITALS: BP 112/60; PULSE 76; RESP 19; TEMP 96.7; O2SAT 93
== END 2016-11-04 12:21 | disposition home health service (06) | DRG 470 ==
LOC: HSDI 06:01 → N06B 15:03
PROVIDERS: ADMIT Surgery; ATTEND Surgery
PROC: 3E0T3CZ (ICD-10-PCS; 2016-11-02)
PROC: 0SRC0J9 Replacement of Right Knee Joint with Synthetic Substitute, Cemented, Open Approach (ICD-10-PCS; principal; 2016-11-02 07:44)
DX: M17.11 Unilateral primary osteoarthritis, right knee (principal); Z68.42 Body mass index [BMI] 45.0-49.9, adult; F03.90 Unspecified dementia, unspecified severity, without behavioral disturbance, psychotic disturbance, mood disturbance, and anxiety; I10 Essential (primary) hypertension; E66.01 Morbid (severe) obesity due to excess calories; M79.7 Fibromyalgia; E03.9 Hypothyroidism, unspecified; Z96.652 Presence of left artificial knee joint; E78.5 Hyperlipidemia, unspecified; G62.9 Polyneuropathy, unspecified; K21.9 Gastro-esophageal reflux disease without esophagitis; K59.00 Constipation, unspecified; Z79.899 Other long term (current) drug therapy; F32.9 Major depressive disorder, single episode, unspecified
CPT/HCPCS: 73560; 85014; 85018; 86850; 86900; 86901; 94150; C1776; C9290; J0131; J1100; J1170; J1580; J1885; J2250; J2370; J2405; J3010; J3370; J7030; J7050; J7120; L1830

== ENCOUNTER 2016-11-07 01:34 | Emergency (ER) | payer MEDICARE, MEDICAID ==
[~2016-11-07] VITALS: Ht 154.9 cm; Wt 105.0 kg
[~2016-11-07 01:34] MED LIST changes: +ADJUSTABLE COMM1 MIS; +CPMMACHINE; +ULTR50TA5 PO; +WALKER WHEELS/F1 MIS
[2016-11-07 01:42] VITALS: BP 119/60; PULSE 75; RESP 18; TEMP 98.7; O2SAT 97
[2016-11-07 01:46] VITALS: BP 119/60; PULSE 76; RESP 18; O2SAT 99
[2016-11-07] MEDS ORDERED: SODIUM CHLOR 0.9% 1000 ML INJ 1,000 ML IV SCH (01:52)
--- NOTE | 2016-11-07 01:59 | PD ---
HPI Chief Complaint: General Weakness Time Seen by Provider: 01:45 Travel History International Travel<30 days: No Contact w/Intl Traveler<30days: No Traveled to known affect area: No History of Present Illness HPI The patient is a 66-year-old female who presents to the emergency department via EMS from [place], [place] for generalized weakness. The patient recently underwent total right knee arthroplasty by her orthopedic surgeon, Dr. Osuna. The patient was discharged home, however, earlier today developed generalized weakness at approximately 4 PM. The patient does complain of some generalized weakness with increasing fatigue. The patient states her temperature at home earlier today of 101. She denies any new cough, does have a history of chronic cough which she tripped is to allergies. She denies any nausea, vomiting, diarrhea, abdominal pain, or dysuria. She does state her right lower extremity is swollen, slightly red, warm to touch, however , states his been that way for several days. The patient denies any acute chest pain or shortness of breath. Symptoms are moderate, there are no alleviating or exacerbating factors. PFSH Past Medical History Arthritis: Yes Asthma: Yes Anxiety: No Depression: Yes Cancer: No Cardiovascular Problems: Yes (HTN) High Cholesterol: Yes Congestive Heart Failure: Yes Diabetes: No Endocrine: Yes Gastrointestinal Disorders: Yes (GERD) GERD: Yes Genitourinary: Yes (URETHRAL STRICTURE) Hepatitis: No Hiatal Hernia: No Hypertension: Yes Immune Disorder: Yes (FIBROMYALGIA) Musculoskeletal: Yes Neurologic: Yes (MUSCLE JERKS AND SOME CONFUSION AT TIMES) Psychiatric: Yes (DEPRESSION AND ANXIETY, FORGETFUL) Reproductive: No Respiratory: Yes Thyroid Disease: Yes Tetanus Vaccination: < 5 Years Menopausal: Yes Past Surgical History Abdominal Surgery: Yes (APPY) AICD: No Body Medical Devices: LEFT KNEE Ear Surgery: No Eye Surgery: No Gynecologic Surgery: Yes (HYSTERECTOMY) Joint Replacement: Yes Neurologic Surgery: Yes (C3 DISKECTOMY) Oral Surgery: No Pacemaker: No Other Surgery: Yes Social History Alcohol Use: Yes (OCCAS) Tobacco Use: No Substance Use: No Allergies-Medications (Allergen,Severity, Reaction): Coded Allergies: penicillin G (Unverified Allergy, Severe, Swelling, 11/07/16) Reported Meds & Prescriptions Reported Meds & Active Scripts Active Ultram (Tramadol HCl) 50 Mg Tab 50 Mg PO Q4H PRN 15 Days Adjustable Commode 3-in-1 (Device) 1 Mis Mis Ea .ROUTE DIRECTED Walker with Front Wheels (Device) 1 Mis Mis Ea .ROUTE DIRECTED CPM-Continuous Passive Motion Machine 1 Ea Device Ea .ROUTE DIRECTED Reported Multi-Vitamin Daily (Multiple Vitamin) 1 Tab Tab 1 Tab PO DAILY Seroquel (Quetiapine Fumarate) 25 Mg Tab 25 Mg PO HS Namzaric (Memantine-Donepezil) 28-10 Mg Cap 1 Cap PO DAILY Omeprazole 40 Mg Cap 40 Mg PO DAILY Gabapentin 300 Mg Cap 900 Mg PO HS Gabapentin 600 Mg Tab 600 Mg PO DAILY Vitamin D3 (Cholecalciferol) 1,000 Unit Tab 1,000 Units PO DAILY Atorvastatin (Atorvastatin Calcium) 40 Mg Tab 40 Mg PO HS Lisinopril 40 Mg Tab 40 Mg PO DAILY Levothyroxine (Levothyroxine Sodium) 50 Mcg Tab 50 Mcg PO DAILY Cetirizine (Cetirizine HCl) 10 Mg Tab 10 Mg PO DAILY Furosemide 20 Mg Tab 20 Mg PO DAILY Dymista Nasal [place] (Azelastine-Fluticasone Nasal [place]) 137-50 Mcg [place] 1 [place] EACH NARE BID To each nostril. Metoprolol Tartrate 25 Mg Tab 25 Mg PO BID Spironolactone 25 Mg Tab 25 Mg PO BIDPC Duloxetine DR (Duloxetine HCl) 30 Mg Capdr 60 Mg PO BID Review of Systems Except as stated in HPI: all other systems reviewed are Neg General / Constitutional: Positive: Fever HENT: No: Lightheadedness Cardiovascular: No: Chest Pain or Discomfort Respiratory: Positive: Cough, No: Shortness of Breath Gastrointestinal: No: Nausea, Vomiting, Diarrhea, Abdominal Pain Genitourinary: No: Dysuria Musculoskeletal: Positive: Edema Skin: Positive Other (as noted in the history present illness) Physical Exam Narrative GENERAL: Awake, alert, pleasant 66-year-old female who appears her stated age and is in no acute respiratory distress. SKIN: Focused skin assessment warm/dry. HEAD: Atraumatic. Normocephalic. EYES: Pupils equal and round. No scleral icterus. No injection or drainage. ENT: No nasal bleeding or discharge. Mucous membranes pink and moist. NECK: Trachea midline. No JVD. CARDIOVASCULAR: Regular rate and rhythm. No murmur appreciated. RESPIRATORY: No accessory muscle use. Clear to auscultation. Breath sounds equal bilaterally. GASTROINTESTINAL: Abdomen soft, morbidly obese with well-healed surgical scar. MUSCULOSKELETAL: Right lower extremity is swollen compared to the left, dressing in place over the anterior aspect of the knee. There is mild erythema in the right leg is warm compared to the left. NEUROLOGICAL: Awake and alert. No obvious cranial nerve deficits. Motor grossly within normal limits. Normal speech. PSYCHIATRIC: Appropriate mood and affect; insight and judgment normal. Data Data Last Documented VS Vital Signs Date Time Temp Pulse Resp B/P (MAP) Pulse Ox O2 Delivery O2 Flow Rate FiO2 11/07/16 04:11 72 18 123/61 (81) 96 Room Air 11/07/16 01:42 98.7 Orders Orders Electrocardiogram (11/07/16 01:52) Complete Blood Count With Diff (11/07/16 01:52) Comprehensive Metabolic Panel (11/07/16 01:52) Creatine Kinase (Cpk) (11/07/16 01:52) Prothrombin Time / Inr (Pt) (11/07/16 01:52) Act Partial Throm Time (Ptt) (11/07/16 01:52) Troponin I (11/07/16 01:52) Thyroid Stimulating Hormone (11/07/16 01:52) Urinalysis - C+S If Indicated (11/07/16 01:52) Lactic Acid Sepsis Protocol (11/07/16 01:52) Blood Culture (11/07/16 01:52) Chest, Single Ap (11/07/16 01:52) Blood Glucose (11/07/16 01:52) Ecg Monitoring (11/07/16 01:52) Iv Access Insert/Monitor (11/07/16 01:52) Oximetry (11/07/16 01:52) Sodium Chloride 0.9% Flush (Ns Flush) (11/07/16 02:00) Sodium Chlor 0.9% 1000 Ml Inj (Ns 1000 M (11/07/16 01:52) Cath For Specimen (11/07/16 03:11) Urine Culture (11/07/16 03:26) Ciprofloxacin 400 Mg Premix (Cipro 400 M (11/07/16 04:15) Labs Laboratory Tests Test 11/07/16 02:13 11/07/16 03:26 11/07/16 04:09 Blood Urea Nitrogen 15 MG/DL Creatinine 1.07 MG/DL Random Glucose 107 MG/DL Total Protein 7.2 GM/DL Albumin 2.4 GM/DL Calcium Level 8.0 MG/DL Alkaline Phosphatase 84 U/L Aspartate Amino Transf (AST/SGOT) 25 U/L Alanine Aminotransferase (ALT/SGPT) 32 U/L Total Bilirubin 1.3 MG/DL Sodium Level 140 MEQ/L Potassium Level 3.7 MEQ/L Chloride Level 104 MEQ/L Carbon Dioxide Level 30.2 MEQ/L Anion Gap 6 MEQ/L Estimat Glomerular Filtration Rate 51 ML/MIN Lactic Acid Level 0.9 mmol/L Total Creatine Kinase 115 U/L Troponin I LESS THAN 0.02 NG/ML Thyroid Stimulating Hormone 3rd Gen 5.930 uIU/ML Urine Color YELLOW Urine Turbidity HAZY Urine pH 6.5 Urine Specific [place] 1.012 Urine Protein NEG mg/dL Urine Glucose (UA) NEG mg/dL Urine Ketones NEG mg/dL Urine Occult Blood NEG Urine Nitrite NEG Urine Bilirubin NEG Urine Urobilinogen 2.0 MG/DL Urine Leukocyte Esterase MOD Urine RBC 15 /hpf Urine WBC 28 /hpf Urine Squamous Epithelial Cells 7 /hpf Urine Bacteria OCC /hpf Urine Yeast (Budding) OCC Microscopic Urinalysis Comment CATH-CULTURE IND White Blood Count 9.7 TH/MM3 Red Blood Count 3.06 MIL/MM3 Hemoglobin 8.7 GM/DL Hematocrit 26.3 % Mean Corpuscular Volume 85.9 FL Mean Corpuscular Hemoglobin 28.3 PG Mean Corpuscular Hemoglobin Concent 33.0 % Red Cell Distribution Width 15.5 % Platelet Count 232 TH/MM3 Mean Platelet Volume 8.8 FL Neutrophils (%) (Auto) 60.2 % Lymphocytes (%) (Auto) 27.0 % Monocytes (%) (Auto) 8.5 % Eosinophils (%) (Auto) 3.7 % Basophils (%) (Auto) 0.6 % Neutrophils # (Auto) 5.9 TH/MM3 Lymphocytes # (Auto) 2.6 TH/MM3 Monocytes # (Auto) 0.8 TH/MM3 Eosinophils # (Auto) 0.4 TH/MM3 Basophils # (Auto) 0.1 TH/MM3 CBC Comment DIFF FINAL Differential Comment Prothrombin Time 10.3 SEC Prothromb Time International Ratio 0.9 RATIO Activated Partial Thromboplast Time 32.3 SEC MDM Medical Decision Making Medical Screen Exam Complete: Yes Emergency Medical Condition: Yes Medical Record Reviewed: Yes Interpretation(s) EKG reveals normal sinus rhythm with a rate of 73. No ischemic changes or ectopy noted. Differential Diagnosis Differential diagnosis includes sepsis, UTI, pneumonia, cellulitis, septic knee , hyponatremia, dehydration, electrolyte abnormality. Narrative Course IV was established, labs were drawn and sent, and the patient was placed on cardiac telemetry monitoring and continuous pulse oximetry monitoring. EKG was ordered and interpreted. Chest x-ray was obtained. UA was sent to lab. The patient was placed on IV fluids. Chest x-rays unremarkable. UA reveals UTI, therefore, the patient was administered Cipro 400 mg intravenously. Laboratory evaluation is otherwise unremarkable. The patient's family does state that the patient's leg has significantly improved and that there is less swelling and the redness and warmth has actually decreased since she was discharged home. They state that this was the same course after her left knee was fixed surgically by Dr. Osuna earlier this year. The patient appears to have a UTI, labs are reassuring. A call was placed to the orthopedic surgeon, Dr. Osuna, at 4:15 AM. I discussed the patient Dr. Anand at 4:45 AM who states the patient can follow-up outpatient on Tuesday as previously scheduled. The family is comfortable with this plan of care and disposition. Diagnosis Primary Impression: UTI (urinary tract infection) Qualified Codes: N39.0 - Urinary tract infection, site not specified; R31.9 - Hematuria, unspecified Patient Instructions: General Instructions Additional Instructions: Please provide the patient a copy of her lab results and x-ray results at discharge. Follow-up with your orthopedist as scheduled on Tuesday. Medications as directed. Return sooner if symptoms worsen or progress. Med/Other Pt SpecificInfo: Prescription(s) given Scripts Ciprofloxacin (Cipro) 500 Mg Tab 500 MG PO BID for Infection for 7 Days, #14 TAB 0 Refills Prov: Sam Peters MD 11/07/16 Disposition: DISCHARGE HOME Condition: Stable Sam Peters MD Nov 07, 2016 01:59
[2016-11-07] MEDS ORDERED: SODIUM CHLORIDE 0.9% FLUSH 5 ML FLUSH IV FLUSH PRN (02:00)
--- NOTE | 2016-11-07 02:27 | RADRPT ---
EXAM DATE/TIME: 11/07/2016 01:52 [facility] COMPARISON: CHEST SINGLE AP, July 06, 2016, 15:28. INDICATIONS : Weakness and low blood pressure MEDICAL HISTORY : Congestive heart failure. Hypertension Hypercholesterolemia. Ashtma, GERD SURGICAL HISTORY : None. ENCOUNTER: Initial ACUITY: 1 day PAIN SCORE: 7/10 LOCATION: Bilateral chest FINDINGS: A single view of the chest demonstrates the lungs to be symmetrically aerated without evidence of mas s, infiltrate or effusion. The heart is upper limits normal size for AP technique. Osseous structur es are intact. CONCLUSION: The lungs are clear. Fareed Chauhan MD on November 07, 2016 at 2:25 Board Certified Radiologist. This report was verified electronically.
[2016-11-07 02:29] VITALS: O2SAT 98
[2016-11-07 03:12] LABS: ALT (GPT) 32 U/L (10-53); ANION GAP 6 MEQ/L (5-15); AST (GOT) 25 U/L (15-37); BICARBONATE 30.2 MEQ/L (21.0-32.0); BLOOD UREA NITROGEN 15 MG/DL (7-18); CHLORIDE 104 MEQ/L (98-107); GLOMERULAR FILTRATION RATE 51 ML/MIN (>89); POTASSIUM 3.7 MEQ/L (3.5-5.1); SODIUM (NA) 140 MEQ/L (136-145)
[2016-11-07 03:22] LABS: ALKALINE PHOSPHATASE 84 U/L (45-117); CREATINE KINASE 115 U/L (26-192); TOTAL BILIRUBIN ADULT 1.3 MG/DL (0.2-1.0)
[2016-11-07 04:01] LABS: BACTERIA, URINE OCC /hpf; BLOOD, URINE NEG (NEG); GLUCOSE,URINE NEG (NEG); KETONE, URINE NEG (NEG); NITRITE,URINE NEG (NEG); PH, URINE 6.5 (5.0-8.5); SQUAMOUS EPITHELIAL CELL URINE 7 /hpf (0-5); URINE COLOR YELLOW (YELLW/STRAW)
[2016-11-07 04:02] LABS: COMMENT (UR) CATH-CULTURE IND; CULTURE IF INDICATED CATH CULTURE IND
[2016-11-07 04:11] VITALS: BP 123/61; PULSE 72; RESP 18; O2SAT 96
[2016-11-07] MEDS ORDERED: CIPROFLOXACIN 400 MG PREMIX 200 ML IV ONE (04:15)
[2016-11-07 04:28] LABS: AUTOMATED NEUTROPHIL # 5.9 TH/MM3 (1.8-7.7); BASOPHIL # 0.1 TH/MM3 (0-0.2); BASOPHIL % 0.6 % (0.0-2.0); EOSINOPHIL # 0.4 TH/MM3 (0-0.4); EOSINOPHIL % 3.7 % (0.0-4.0); HEMATOCRIT 26.3 % (35.0-46.0); HEMO FLAGS DIFF FINAL; LYMPHOCYTE # 2.6 TH/MM3 (1.0-4.8); MEAN CELL VOLUME 85.9 FL (80.0-100.0); MEAN CORPUSCULAR HEMOGLOBIN 28.3 PG (27.0-34.0); MONO % 8.5 % (0.0-8.0); NEUT % 60.2 % (16.0-70.0); PLATELET COUNT 232 TH/MM3 (150-450); RED BLOOD COUNT 3.06 MIL/MM3 (4.00-5.30); RED CELL DISTRIBUTION WIDTH 15.5 % (11.6-17.2); WHITE BLOOD COUNT 9.7 TH/MM3 (4.0-11.0)
[2016-11-07 04:38] LABS: INTERNATIONAL NORMALIZED RATIO 0.9 RATIO; PROTHROMBIN TIME - PATIENT 10.3 SEC (9.8-11.6)
[2016-11-07 04:48] LABS: APTT (PATIENT) 32.3 SEC (24.3-30.1)
[2016-11-07] MEDS ORDERED: CIPR-9 PO (04:53)
[2016-11-07] MEDS ORDERED: ACETAMINOPHEN 325 MG TAB PO ONE (05:00)
--- NOTE | 2016-11-07 13:07 | EKG ---
Date Performed: 11/07/2016 Time Performed: 02:49:13 PTAGE: 66 years EKG: Sinus rhythm NORMAL ECG PREVIOUS TRACING : 10/27/2016 13.34 Since previous tracing, axis is somewhat leftward. QRS volt age somewhat smaller. DOCTOR: Cooper Osman Interpretating Date/Time 11/07/2016 13:05:15
== END 2016-11-07 05:23 | disposition home or self-care (01) ==
LOC: NEPC 01:34
DX: N39.0 Urinary tract infection, site not specified (principal); R31.9 Hematuria, unspecified; B96.1 Klebsiella pneumoniae [K. pneumoniae] as the cause of diseases classified elsewhere; I50.9 Heart failure, unspecified; I11.0 Hypertensive heart disease with heart failure; Z88.0 Allergy status to penicillin
CPT/HCPCS: 71010; 80053; 81001; 82550; 83605; 84443; 84484; 85025; 85610; 85730; 87040; 87077; 87086; 87186; 93005; 96365; 99285; J0744; J7030